=== PATIENT | male | born 1955 | race Caucasian/White ===

== ENCOUNTER 2024-01-16 15:44 | Outpatient (AMB) | payer OTHER, SELFPAY ==
--- NOTE | 2024-01-16 16:05 | A.OFFPC_ITS ---
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 Transferring care from [facility]. Medical records have not been requested and have received. Primary Mill Roller Required: No Food And Nutrition Services Supervisor: Not Required per policy Accompanied by: Self / Same As Patient Allergies No Known Allergies Allergy (Verified 01/16/24 16:31) Medication List - Last Reconciled 01/16/24 by Marino Hernandez MD No Known Home Meds Tobacco use date assessed: 01/16/24 Fall risk assessment: 1 Fall in past year (01/15/24) Last assessed Fall Risk: 01/16/24 Dental Screening Dental Screen Date: 01/16/24 Did you have a dental visit in the last 12 months?: No Did you have a dental problem in the last 6 months where you did not have access to dental care?: No Was dental information given to patient?: No HPI 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 HPI Details Patient comes in today for his annual physical examination and to establish care - he is a new patient to the practice His previous PCP was at [facility] and patient states that he has not seen a doctor in about 3 years States that he has a few issues that he would like to have addressed Relates that he has been experiencing recurrent right knee pain lately; knee also swells up at times recently Reports (+) Hx of ACL repair of his right knee back when he was in college Denies any recent injury or trauma to his knee but states that 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 of 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 and states that he will often constantly be walking and roaming around the pool when he is at work Thinks that he may have aggravated his knee in the process Also states that he has a history of diabetes and was on Metformin for his diabetes in the past but he quit taking them just before the pandemic about 3 years ago and has been just trying to control his blood sugar with diet and exercise although his recent knee issues have made exercising impractical Adds that he has been experiencing trouble hearing for a while now and feels that this has been getting worse and he would like like to have his hearing checked out He denies any headaches or dizziness Denies any chest pains, no SOB No nausea/vomiting, no abdominal pain but reports that he has been experiencing a constant sensation of fullness and sometimes pressure over the left upper abdominal area lately No change in bowel habits noted Denies any acute urinary symptoms PFSH Medical History (Updated 01/18/24 @ 22:06 by Marino Hernandez MD) Hearing impairment Overweight (BMI 25.0-29.9) Right knee pain Diabetes mellitus Surgical History (Updated 01/18/24 @ 22:10 by Marino Hernandez MD) History of colonoscopy History of repair of ACL Social History 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 1. Little interest or pleasure in doing things: not at all 2. Feeling down, depressed, or hopeless: not at all 3. Trouble falling or staying asleep, or sleeping too much: not at all 4. Feeling tired or having little energy: not at all 5. Poor appetite or overeating: not at all 6. Feeling bad about yourself - or that you are a failure or have let yourself or your family down: not at all 7. Trouble concentrating on things, such as reading the newspaper or watching television: not at all 8. Moving or speaking so slowly that other people could have noticed. Or the opposite - being so fidgety or restless that you have been moving around a lot more than usual: not at all 9. Thoughts that you would be better off or of hurting yourself in some way: not at all Total score: 0 Depression Screening Interpretation: Negative Depression Screening Done: Yes 92931 - PHQ-9 Billing: Yes Source: Developed by Drs. Charly Gutierrez, Ada Gustafson, Marino Sadler and colleagues, with an educational socorro from [employer]. Thrive Questionnaire Date Thrive assessed: 01/16/24 I am a: Patient What is your living situation today?: I have a steady place to live Within the past 12 months, did the food you bought not last and you didn't have the money to get more?: Never true Within the past 12 months, did you worry whether your food would run out before you got money to buy more?: Never true Do you have trouble paying for medicines?: No Do you have trouble getting transportation to medical appointments?: No Do you have trouble paying your heating and electricity bill?: No Do you have trouble taking care of your child, family member or friend?: No Do you have trouble with day-to-day activities such as bathing, preparing meals, shopping, managing finances, etc.?: No Are you currently unemployed and looking for a job?: No Are you interested in more education?: No Currently or been in a relationship where the following occur: no concerns reported THRIVE Score: 0 AUDIT C Alcohol Use Questionnaire (AUDIT-C) 1. How often do you have a drink containing alcohol?: 2-3 times a week 2. How many drinks containing alcohol do you have on a typical day when you are drinking?: 1 or 2 3. How often do you have six or more drinks on one occasion?: Never Total Score: 3 Score Reviewed/Action Taken: Yes JORI-7 AMB Questionnaire JORI-7 Date JORI - 7 assessed: 01/16/24 Feeling nervous, anxious, or on edge: 0 = Not at all Not being able to stop or control worryin = Not at all Worrying too much about different things: 0 = Not at all Trouble relaxin = Not at all Being so restless that it is hard to sit still: 0 = Not at all Becoming easily annoyed or irritable: 0 = Not at all Feeling afraid as if something awful might happen: 0 = Not at all Total JORI-7 score (0-4 normal; 5-9 mild; 10-14 moderate; 15-21 severe): 0 Source: Developed by Ada Murphy Kurt Kroenke and colleagues, with an educational socorro from [employer]. Review of Systems Const Denies chills, Denies fatigue, Denies fever(s) and Denies headache(s) Eyes Denies blurry vision, Denies change in vision, Denies irritation and Denies itchy eyes ENT Denies dysphagia, Denies dizziness, Denies otalgia, Denies headache(s), Reports hearing loss, Denies neck pain, Denies odynophagia and Denies sore throat Card Denies chest pain, Denies palpitations and Denies dyspnea Resp Denies cough, Denies dyspnea and Denies wheezing GI Reports abdominal pain (most left-sided - more of a fullness and pressure-like sensation on the L ), Denies constipation, Denies dysphagia, Denies heartburn, Denies diarrhea, Denies nausea, Denies odynophagia and Denies vomiting Denies oliguria, Denies difficulty urinating, Denies dysuria, Reports nocturia and Denies urinary frequency Musc Denies back pain, Reports arthralgias (of the right knee, on and off lately), Reports joint swelling (right knee, at times) and Denies neck pain Skin/Breast Denies lesions and Denies rash Neuro Denies dizziness and Denies headache(s) Psych Denies anxiety Endo Denies fatigue and Denies palpitations Aller/Immun Denies itchy eyes and Denies wheezing Physical exam (Primary Care) Vital Signs: Last Vital Signs Pulse 109 H 01/16/24 16:07 BP 140/80 H 01/16/24 16:07 Pulse Ox 98 01/16/24 16:07 Oxygen Delivery Method Room Air 01/16/24 16:07 BMI result Body Mass Index 29.8 Tobacco/Smoking Status: Tobacco use Status Tobacco use date assessed 01/16/24 01/16/24 16:21 Patient Tobacco Use Status Former Tobacco user 01/16/24 16:21 e-Cigarette/Vaping Use Never Used 01/16/24 16:21 PHQ-9: PHQ-9 Score PHQ-9: Total score 0 01/18/24 19:01 Depression Screening Interpretation: Negative Thrive Assessment: Date of Thrive Assessment Date Thrive assessed 01/16/24 01/16/24 16:21 Currently or been in a relationship where the following occur: no concerns reported Const General: no acute distress and alert Orientation/consciousness: patient oriented x3 [facility] Head: Yes normocephalic and Yes atraumatic Ears: TM's normal bilaterally and EAC's normal General nose exam: No nasal discharge present Face and sinus: Yes normal facial exam and Yes sinuses nontender Teeth and gingiva: dentition normal Throat: Yes posterior oropharynx normal and Yes tonsils normal (no TP congestion) Eyes Eyelids: Yes eyelids normal Conjunctivae: conjunctivae normal Pupils: Equal, round and reactive pupils present EOM: EOMs intact bilaterally Neck Neck: Yes no lymphadenopathy and Yes supple Thyroid: Thyroid normal Resp Auscultation: clear to auscultation bilaterally, no rales and no wheezes Cardio Rate: regular rate Rhythm: regular rhythm Heart sounds: no murmurs GI Palpation (GI): Soft to palpation, nontender, No hepatosplenomegaly present and no masses (no masses palpated over the left side of the abdomen) Auscultation: normal bowel sounds General: Yes no CVA tenderness Back/Spine/Pelvis Back: no CVA tenderness Thoracic/Lumbar Spine: thoracic and lumbar spine normal to inspection Skin Lesions: no lesions Rashes: no rashes Neuro General: patient oriented x3, moves all extremities, no focal motor deficits and CN's II-XI intact bilaterally Cranial nerves: Yes Equal, round and reactive pupils present Cognition (Neuro): normal cognition Gait exam (Neuro): Normal gait present Extrem General: Yes no clubbing, cyanosis or edema Right lower extremity: knee Details: tenderness Location: of the medial joint line; no swelling Results AMB Hemoglobin A1c AMB Hemoglobin A1c 12.6 % Last Edit by ALEKSANDER Hernandez on 01/16/24 16:4 5 Results Reviewed Results Reviewed: Laboratory Last Values Hgb A1c (Clinic) 12.6 % (4.0-6.0) H 01/16/24 16:36 Assessment and Plan Assessment & Plan (1) Annual physical exam: Code(s): Z00.00 - Encounter for general adult medical examination without abnormal findings Plan: Check labs TERELL Thinks that he is up-to-date with his colon cancer screening - recalls having it done at [facility] sometime within the past 5 to 7 years and was recommended to get his colonoscopy repeated in 10 years (2) Diabetes mellitus: Code(s): E11.9 - Type 2 diabetes mellitus without complications Qualifiers: Diabetes mellitus complication status: with hyperglycemia Diabetes mellitus terminal manager insulin use: without terminal manager use Diabetes mellitus type: type 2 Qualified Code(s): E11.65 - Type 2 diabetes mellitus with hyperglycemia Plan: In-office HgbA1c done today is at 12.6%, which as discussed with patient, indicates that his diabetes is completely uncontrolled and that at this point, diet modification and exercise alone are not really going to be enough to get him to goal, which is a HgbA1c of at least <7.0% Reinforced diabetic diet He is advised that I will start him again for now on Metformin 500 mg BID but he needs to get labs done TERELL for us to see at least how his renal function is at this time, which will impact whatever medications we have to start him on from now on for his diabetes He will likely need more that 500 mg of Metformin BID to get his diabetes under control but we will have to see how his labs come out first Patient states that he will try to get these done TERELL, most likely early Friday morning as this weekend will have the [place] Day parade here in [place] and it will be practically impossible to get here this weekend for his labs (3) Elevated blood pressure reading in office without diagnosis of hypertension: Code(s): R03.0 - Elevated blood-pressure reading, without diagnosis of hypertension Plan: He is advised that his blood pressure is elevated and higher than recommended at this time Discussed low sodium diet and goal is a systolic BP of at least 120 to 130 mm or less (4) Left sided abdominal pain: Code(s): R10.9 - Unspecified abdominal pain Plan: Will send him for abdominal US for further evaluation (5) Right knee pain: Code(s): M25.561 - Pain in right knee Qualifiers: Chronicity: unspecified Qualified Code(s): M25.561 - Pain in right knee Plan: Will send him for x-rays of the right knee for further evaluation (6) Hearing impairment: Code(s): H91.90 - Unspecified hearing loss, unspecified ear Qualifiers: Hearing loss type: unspecified Laterality: unspecified laterality Qualified Code(s): H91.90 - Unspecified hearing loss, unspecified ear Plan: Per request, will refer him to [facility] Hearing for further evaluation (7) Overweight (BMI 25.0-29.9): Code(s): E66.3 - Overweight Plan: Reinforced diet/exercise as tolerated/lose weight Plan Follow up in 2 months Orders: Orders AMB Hemoglobin A1c 01/16/24 Z13.9 - Encounter for screening, unspecified Complete Blood Count Auto Diff 01/16/24 D64.9 - Anemia, unspecified, Z00.00 - Encounter for general adult medical examination without abnormal findings Vitamin D 25-OH Total 01/16/24 E55.9 - Vitamin D deficiency, unspecified, Z00.00 - Encounter for general adult medical examination without abnormal findings US abdomen complete 01/16/24 R10.9 - Unspecified abdominal pain XR knee RT 3V 01/16/24 M25.561 - Pain in right knee Comprehensive [place]. Panel Fast 01/16/24 E78.00 - Pure hypercholesterolemia, unspecified, Z00.00 - Encounter for general adult medical examination without abnormal findings Lipid Panel 01/16/24 E78.00 - Pure hypercholesterolemia, unspecified, Z00.00 - Encounter for general adult medical examination without abnormal findings TSH reflex Free T4 01/16/24 E78.00 - Pure hypercholesterolemia, unspecified, Z00.00 - Encounter for general adult medical examination without abnormal findings UA CC w/rflx Micro + Cult 01/16/24 R30.0 - Dysuria, Z00.00 - Encounter for general adult medical examination without abnormal findings Microalbumin, Random (w Creat) 01/16/24 E11.9 - Type 2 diabetes mellitus without complications, Z00.00 - Encounter for general adult medical examination without abnormal findings Prostate Specific Antigen 01/16/24 N40.0 - Benign prostatic hyperplasia without lower urinary tract symptoms, Z00.00 - Encounter for general adult medical examination without abnormal findings Referrals Speech and Hearing Referral H91.90 - Unspecified hearing loss, unspecified ear Medications: New metformin 500 mg PO BID 30 days 60 tabs 0RF E11.9 - Type 2 diabetes mellitus without complications Coding Level of Care Code New Pt Prev Care >65yr (65572) Diagnoses Annual physical exam Z00.00 Type 2 diabetes mellitus with hyperglycemia, without long-term current use of insulin E11.65 Diabetes mellitus complication status: with hyperglycemia Diabetes mellitus [facility] insulin use: without [facility] use Diabetes mellitus type: type 2 Elevated blood pressure reading in office without diagnosis of hypertension R03.0 Left sided abdominal pain R10.9 Right knee pain, unspecified chronicity M25.561 Chronicity: unspecified Hearing loss, unspecified hearing loss type, unspecified laterality H91.90 Hearing loss type: unspecified Laterality: unspecified laterality Overweight (BMI 25.0-29.9) E66.3
[2024-01-16 16:07] VITALS: BP 140/80; PULSE 109; O2SAT 98; BMI 29.8
== END 2024-01-16 16:52 | disposition home or self-care (01) ==
PROVIDERS: PCP Internal Medicine; Visit Provider Internal Medicine
DX: E11.65 Type 2 diabetes mellitus with hyperglycemia (principal)
CPT/HCPCS: 83036; 99387

== ENCOUNTER 2024-01-19 09:25 | Outpatient (REF) | payer OTHER, SELFPAY ==
[2024-01-19 09:45] LABS: MANUAL DIFF FLAG NO
[2024-01-19 10:32] LABS: Basophils Absolute Auto 0.1 X10*3/uL (0.0-0.2); Basophils Percent Auto 0.7 % (0-2); Eosinophils Absolute Auto 0.2 X10*3/uL (0.0-0.4); Eosinophils Percent Auto 2.5 % (0-4); Hematocrit 42.1 % (42.0-52.0); Hemoglobin 14.8 g/dl (14.0-18.0); Imm Gran Abs Auto 0.05 X10*3/uL (0.00-0.03); Imm Gran Pct Auto 0.7 % (0.0-0.4); Lymphocytes Absolute Auto 1.9 X10*3/uL (1.2-4.9); Mean Corpuscular HGB Conc 35.2 g/dl (31.0-36.0); Mean Corpuscular Hemoglobin 32.5 pg (27.0-33.0); Mean Corpuscular Volume 92.5 fL (80.0-98.0); Mean Platelet Volume 11.8 fL (9.4-12.4); Monocytes Absolute Auto 0.8 X10*3/uL (0.1-1.2); Monocytes Percent Auto 11.7 % (2-11); Neutrophils Absolute Auto 3.8 x10*3/uL (2.0-8.3); Neutrophils Percent Auto 56.4 % (45-73); Platelet Count 191 X10*3/uL (160-400); Red Blood Count 4.55 X10*6/uL (4.60-5.80); Red Cell Distribution Width 12.2 % (11.0-16.0); White Blood Count 6.7 X10*3/uL (4.8-10.8)
[2024-01-19 10:43] LABS: Appearance Urine Clear; Color Urine Yellow; Glucose Urine UA >=1000 mg/dL (Negative); Leukocyte Esterase Urine Negative (Negative); Nitrite Urine Negative (Negative); UMIC TRIGGER UACC YES; Urine Blood Negative (Negative); Urine Ketones Negative (Negative); Urine Protein 30 (1+) mg/dL (Neg-Trace)
[2024-01-19 10:49] LABS: Bacteria Urine None Seen (None Seen); Hyaline Casts Urine 0-2 /LPF (0-2); RBC Urine 0-2 /HPF (0-2); Squamous Epithelial Cell Urine 0-2 /HPF (0-2); WBC Urine 0-5 /HPF (0-5)
[2024-01-19 11:19] LABS: Alanine Aminotransferase 27 U/L (0-40); Albumin Level 3.9 g/dL (3.5-5.0); Alkaline Phosphatase 77 U/L (39-117); Anion Gap 16 (12-20); Aspartate Amino Transferase 18 U/L (5-37); Bilirubin Total 0.6 mg/dL (0.0-1.0); Blood Urea Nitrogen 11 mg/dL (9-16); Calcium 9.7 mg/dL (8.4-10.2); Carbon Dioxide 23 mmol/L (22-29); Chloride 97 mmol/L (96-108); Cholesterol 299 mg/dL (<200); Estimated Glomerular Filt Rate > 60; Glucose Fasting 289 mg/dL (60-99); HDL Cholesterol 51 mg/dL (>40); Sodium 131 mmol/L (135-145); Total Protein 7.8 g/dL (6.5-8.0); Triglycerides 523 mg/dL (<150)
[2024-01-19 11:29] LABS: Creatinine Urine 61.06 mg/dL; Microalbum/Creatinine Ratio Ur 268.5 ug/mg cr (<30)
[2024-01-19 11:41] LABS: Prostate Specific Antigen 0.16 ng/mL (<0.05-4.0)
[2024-01-19 11:43] LABS: TSH reflex Free T4 1.17 uIU/mL (0.32-4.0); Vitamin D 25-OH Total 19.8 ng/mL (>30)
== END 2024-01-19 09:26 | disposition home or self-care (01) ==
LOC: HO.LAB 09:25
PROVIDERS: PCP Internal Medicine; Visit Provider Internal Medicine
DX: Z00.00 Encounter for general adult medical examination without abnormal findings (principal); Z12.5 Encounter for screening for malignant neoplasm of prostate; E55.9 Vitamin D deficiency, unspecified; E78.00 Pure hypercholesterolemia, unspecified; E11.9 Type 2 diabetes mellitus without complications; D64.9 Anemia, unspecified; N40.0 Benign prostatic hyperplasia without lower urinary tract symptoms
CPT/HCPCS: 36415; 80053; 80061; 81001; 82043; 82306; 82570; 84153; 84443; 85025

== ENCOUNTER 2024-02-03 07:37 | Outpatient (REF) | payer OTHER, SELFPAY ==
--- NOTE | ~2024-02-03 | US_ITS ---
EXAMINATION: US ABDOMEN COMPLETE CLINICAL INFORMATION: Unspecified abdominal pain. COMPARISON: None available. TECHNIQUE: Real-time imaging of the abdominal viscera. FINDINGS: PANCREAS: Limited. The visualized pancreatic head and body are normal in appearance. The remainder of the pancreas is obscured from visualization by the overlying bowel gas. ABDOMINAL AORTA: The proximal and distal segments are nonaneurysmal. The segment is obscured by overlying bowel gas. INFERIOR VENA CAVA: Visualized portions are normal. LIVER: The liver is normal in size, with a longitudinal span of 16.0 cm. The liver contour is normal. There is diffuse increased liver parenchymal echogenicity. No focal hepatic lesion. There is no intrahepatic biliary duct dilatation seen. GALLBLADDER: Normal. The gallbladder is physiologically distended without evidence of stones, sludge, polyps, wall thickening or pericholecystic fluid. COMMON BILE DUCT: Normal in caliber measuring 0.5 cm in diameter. RIGHT KIDNEY: Normal. No hydronephrosis. No renal calculi or focal parenchymal lesions. The kidney measures 11.7 cm in maximum dimension. LEFT KIDNEY: Normal. No hydronephrosis. No renal calculi or focal parenchymal lesions. The kidney measures 11.3 cm in maximum dimension. SPLEEN: Normal. The spleen measures 9.4 cm in maximum dimension. FREE FLUID: None. US/US abdomen complete IMPRESSION: 1. There is generalized increase in hepatic echotexture, consistent with fatty infiltration or hepatocellular disease. Please correlate clinically. No focal hepatic mass or intrahepatic biliary dilatation is seen. 2. Technically limited ultrasound examination of the pancreas and abdominal great vessels.
== END 2024-02-03 07:38 | disposition home or self-care (01) ==
LOC: HO.US 07:37
PROVIDERS: PCP Internal Medicine; Visit Provider Internal Medicine
DX: R10.9 Unspecified abdominal pain (principal)
CPT/HCPCS: 76700

== ENCOUNTER 2024-04-06 08:11 | Outpatient (AMB) | payer OTHER, SELFPAY ==
[2024-04-06 08:38] VITALS: BP 144/88; PULSE 86; O2SAT 97; BMI 30.6
--- NOTE | 2024-04-06 08:38 | MHC.PC.OV ---
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 Required: No Ring Packer: Not Required per policy Accompanied by: Self / Same As Patient Allergies No Known Allergies Allergy (Verified 04/06/24 11:41) Medication List - Last Reconciled 04/06/24 by Marino Hernandez MD linagliptin (Tradjenta) 5 mg PO QAM 90 days lisinopril 5 mg PO DAILY 90 days metformin 500 mg PO BID 30 days Tobacco use date assessed: 01/16/24 Fall risk assessment: No Falls in past year Last assessed Fall Risk: 04/06/24 Dental Screening Dental Screen Date: 01/16/24 HPI uncontrolled DM HPI Details Patient comes in today for his follow up visit States that he has been experiencing increasing right knee pain lately - feels that his knee is giving out on him often when he is walking or moving about Recalls that he had arthroscopic surgery on his knee many years ago for a torn ACL States that he feels okay otherwise He denies any headaches or dizziness Denies any chest pains, no SOB No nausea/vomiting, no abdominal pain No change in bowel habits noted He would like to go over the results of his labs done back in January 2024 after his initial physical exam here [facility] Medical History Obesity (BMI 30-39.9) Vitamin D deficiency Essential hypertension Mixed hyperlipidemia Hearing impairment Overweight (BMI 25.0-29.9) Right knee pain Diabetes mellitus Surgical History History of colonoscopy History of repair of ACL Social History Housing: Condominium Alcohol intake: current Alcohol intake frequency: 0-2 drinks per day Patient Tobacco Use Status: Former Tobacco user e-Cigarette/Vaping Use: Never Used Second Hand Smoke Exposure: Yes service: Yes ([employer]) Current occupational status: employed 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 Charly Gutierrez, Aad Gustafson, Marino Sadler and colleagues, with an educational socorro from [employer]. Review of Systems Const Denies chills, Denies fatigue, Denies fever(s) and Denies headache(s) ENT Denies dysphagia, Denies dizziness, Denies otalgia, Denies headache(s), Denies neck pain, Denies odynophagia and Denies sore throat Card Denies chest pain, Denies palpitations and Denies dyspnea Resp Denies cough and Denies dyspnea GI Denies abdominal pain, Denies constipation, Denies dysphagia, Denies heartburn, Denies diarrhea, Denies nausea, Denies odynophagia and Denies vomiting Denies dysuria, Denies nocturia and Denies urinary frequency Musc Denies back pain and Denies neck pain Skin/Breast Denies rash Neuro Denies dizziness and Denies headache(s) Endo Denies fatigue and Denies palpitations Physical exam (Primary Care) Vital Signs: Last Vital Signs Pulse 86 04/06/24 08:38 BP 144/88 H 04/06/24 08:38 Pulse Ox 97 04/06/24 08:38 Oxygen Delivery Method Room Air 04/06/24 08:38 BMI result Body Mass Index 30.6 Tobacco/Smoking Status: Tobacco use Status Tobacco use date assessed 01/16/24 04/06/24 08:39 Patient Tobacco Use Status Former Tobacco user 04/06/24 08:39 e-Cigarette/Vaping Use Never Used 04/06/24 08:39 Thrive Assessment: Date of Thrive Assessment Date Thrive assessed 01/16/24 04/06/24 08:39 Const General: no acute distress and alert HENMT Ears: TM's normal bilaterally and EAC's normal Throat: Yes posterior oropharynx normal and Yes tonsils normal (no TP congestion) Neck Neck: Yes no lymphadenopathy and Yes supple Thyroid: Thyroid normal Resp Auscultation: clear to auscultation bilaterally, no rales and no wheezes Cardio Rate: regular rate Rhythm: regular rhythm Heart sounds: no murmurs GI Palpation (GI): Soft to palpation and nontender Auscultation: normal bowel sounds General: Yes no CVA tenderness Back/Spine/Pelvis Back: no CVA tenderness Thoracic/Lumbar Spine: No lumbar spinal tenderness Skin Rashes: no rashes Extrem General: Yes no clubbing, cyanosis or edema Results AMB Hemoglobin A1c AMB Hemoglobin A1c 10.6 % Last Edit by ALEKSANDER Khanna on 04/06/24 08:55 Results Reviewed Results Reviewed: Laboratory Last Values Hgb A1c (Clinic) 10.6 % (4.0-6.0) H 04/06/24 08:39 Laboratory Tests 01/19/24 01/19/24 04/06/24 09:44 09:46 08:39 WBC 6.7 Hgb 14.8 Hct 42.1 Plt Count 191 Sodium 131 L Potassium 5.0 Creatinine 1.14 Estimated GFR > 60 Fasting Glucose 289 H Hgb A1c (Clinic) 10.6 H Calcium 9.7 AST 18 ALT 27 Triglycerides 523 H Cholesterol 299 H LDL Cholesterol, Calc TNP HDL Cholesterol 51 Prostate Specific Ag 0.16 25-OH Vitamin D Total 19.8 L TSH 1.17 Ur Specific [place] 1.020 Urine Protein 30 (1+) H Urine Glucose (UA) >=1000 H Urine Blood Negative Urine Nitrite Negative Ur Leukocyte Esterase Negative Microalb/Creat Ratio 268.5 H Assessment and Plan Assessment & Plan (1) Type 2 diabetes mellitus with microalbuminuria, without long-term current use of insulin: Code(s): E11.29 - Type 2 diabetes mellitus with other diabetic kidney complication; R80.9 - Proteinuria, unspecified Plan: His in-office HgbA1c today is at 10.6% (he was at 12.6% a few months ago) - goal is at least <7.0% Reinforced diabetic diet Continue Metformin 500 mg BID; will start him additionally on Tradjenta 5 mg QD He is also advised that he currently already has significant microalbuminuria on his recent labs so he should try to get his diabetes under control more urgently (2) Mixed hyperlipidemia: Code(s): E78.2 - Mixed hyperlipidemia Plan: Results of his labs done back in January 2024 reviewed and discussed with patient - he is advised that his serum triglyceride level was significantly elevated at 523 mg/dl and total cholesterol at 299 mg/dl Discussed that his very high TG level is likely related to his hyperglycemia and poor DM control and should improve once his diabetes is under better control Reinforced low cholesterol diet Will recheck his labs and fasting lipids in 4 months for follow up (3) Essential hypertension: Code(s): I10 - Essential (primary) hypertension Plan: Discussed low sodium diet - goal is systolic BP of 120 mm or less Will go ahead and start him on Lisinopril 5 mg QD - advised that Lisinopril also helps to some extent with renoprotection He is advised to check and monitor his blood pressure regularly (4) Right knee pain: Code(s): M25.561 - Pain in right knee Qualifiers: Chronicity: unspecified Qualified Code(s): M25.561 - Pain in right knee Plan: Will send him for x-rays of the right knee for further evaluation Will also refer him to orthopedics for further evaluation and management (5) Vitamin D deficiency: Code(s): E55.9 - Vitamin D deficiency, unspecified Plan: Will start him on Vitamin D3 2000 units QD (6) Obesity (BMI 30-39.9): Code(s): E66.9 - Obesity, unspecified Plan: Reinforced diet/exercise as tolerated/lose weight Plan Follow up in 4 months Orders: Orders AMB Hemoglobin A1c Today E11.65 - Type 2 diabetes mellitus with hyperglycemia Lipid Panel 4 Months E78.00 - Pure hypercholesterolemia, unspecified Complete Blood Count Auto Diff 4 Months D64.9 - Anemia, unspecified TSH reflex Free T4 4 Months E78.00 - Pure hypercholesterolemia, unspecified UA CC w/rflx Micro + Cult 4 Months R30.0 - Dysuria XR knee RT 4V Today M25.561 - Pain in right knee Hemoglobin A1c 4 Months E11.9 - Type 2 diabetes mellitus without complications Comprehensive [place]. Panel Fast 4 Months E78.00 - Pure hypercholesterolemia, unspecified Microalbumin, Random (w Creat) 4 Months E11.9 - Type 2 diabetes mellitus without complications Vitamin D 25-OH Total 4 Months E55.9 - Vitamin D deficiency, unspecified Referrals Orthopedics Referral M25.561 - Pain in right knee Medications: New lisinopril 5 mg PO DAILY 90 days 90 tabs 1RF linagliptin (Tradjenta) 5 mg PO QAM 90 days 90 tabs 1RF Coding Level of Care Code Est Pt Level 4 (25590) Complex EM visit Add On G2211 Diagnoses Type 2 diabetes mellitus with microalbuminuria, without long-term current use of insulin E11.29; R80.9 Mixed hyperlipidemia E78.2 Essential hypertension I10 Right knee pain, unspecified chronicity M25.561 Chronicity: unspecified Vitamin D deficiency E55.9 Obesity (BMI 30-39.9) E66.9
== END 2024-04-06 09:42 | disposition home or self-care (01) ==
PROVIDERS: PCP Internal Medicine; Visit Provider Internal Medicine
DX: E11.29 Type 2 diabetes mellitus with other diabetic kidney complication (principal); E11.65 Type 2 diabetes mellitus with hyperglycemia; Z68.43 Body mass index [BMI] 50.0-59.9, adult; E66.9 Obesity, unspecified; R80.9 Proteinuria, unspecified; E78.2 Mixed hyperlipidemia; M25.561 Pain in right knee; I10 Essential (primary) hypertension; E55.9 Vitamin D deficiency, unspecified
CPT/HCPCS: 83036; 99214; G2211

== ENCOUNTER 2024-04-12 13:04 | Outpatient (AMB) | payer OTHER, SELFPAY ==
--- NOTE | 2024-04-12 13:15 | A.OFFVIS_ITS ---
Intake Visit Reasons: N/P RT knee pain Intake Note: Harsha is a 68 year old male who presents today as a new patient for a evaluation of his right knee pain. Patient reports feeling that his knee is giving out on him often when he is walking or moving and it is painful especially when walking up stairs. He express that he had arthroscopic surgery in 1975 on his knee many years ago for a torn ACL. Pt denies any previous injections. Allergies No Known Allergies Allergy (Verified 04/12/24 13:19) HPI HPI N/P RT knee pain : Details: 68-year-old male who presents in the office today, as a new patient, for an evaluation of right knee pain. The patient was seen twice on 01/16/2024 and 04/06/2024 by his PCP with a complaint of right knee pain, edema, and giving out. X-rays of the right knee were ordered but not obtained. While in the office today the patient reports feeling like his knee is going to give out, which occurs often when ambulating and with movements. He reports increased pain when ambulating up stairs. He states his biggest complaint is instability. The patient reports the pain began about a year ago, in 2022, intermittently and has progressed over time. He states his pain began at a 2/10 but has increased to 6/10. He denies any fall or trauma to the right knee. 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 Patient denies any prior injections and would like to discuss options. Patient reports he has been working out more. Patient has a significant medical history of diabetes mellitus that is uncontrolled. A1c as of 01/16/2024 was 12.6%. A1c as of 04/06/2024 was 10.6%. Per Internal Medicine note on 01/16/2024, the patient has a surgical history of right knee ACL repair when he was in college. During today?s encounter the patient reports this surgery was in 1975. He states the surgery took a few months to recover. 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 No ecchymosis, erythema, or joint effusion. No tenderness to palpation along the medial or lateral joint lines. Full knee extension and flexion. Crepitus felt with ROM. NVI. Assessment & Plan Assessment & Plan (1) Osteoarthritis of right knee: Code(s): M17.11 - Unilateral primary osteoarthritis, right knee Category: Medical (2) Diabetes mellitus: Code(s): E11.9 - Type 2 diabetes mellitus without complications Category: Medical Qualifiers: Diabetes mellitus complication detail: with diabetic microalbuminuria Diabetes mellitus complication status: with kidney complications Diabetes mellitus terminal operator insulin use: without half-way use Diabetes mellitus type: type 2 Qualified Code(s): E11.29 - Type 2 diabetes mellitus with other diabetic kidney complication; R80.9 - Proteinuria, unspecified Plan Mr. Jeter is a 68-year-old male who presents in the office today, as a new patient, for an evaluation of right knee pain. The patient was seen twice on 01/16/2024 and 04/06/2024 by his PCP with a complaint of right knee pain, edema, and giving out. X-rays of the right knee were ordered but not obtained. While in the office today the patient reports feeling like his knee is going to give out, which occurs often when ambulating and with movements. He reports increased pain when ambulating up stairs. He states his biggest complaint is instability. The patient reports the pain began about a year ago, in 2022, intermittently and has progressed over time. He states his pain began at a 2/10 but has increased to 6/10. He denies any fall or trauma to the right knee. 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 Patient denies any prior injections and would like to discuss options. Patient reports he has been working out more. Patient has a significant medical history of diabetes mellitus that is uncontrolled. A1c as of 01/16/2024 was 12.6%. A1c as of 04/06/2024 was 10.6%. Per Internal Medicine note on 01/16/2024, the patient has a surgical history of right knee ACL repair when he was in college. During today?s encounter the patient reports this surgery was in 1975. He states the surgery took a few months to recover. 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 I discussed the role of cortisone and gel injections. However, due to the patient?s A1c being 10.6, we will defer until he reaches a goal of 8 to 9. The patient understands and accepts this plan. He was given a genumed knee brace, off the shelf. A referral for physical therapy was made in the office today to work on quad muscle strengthening. He is also able to take OTC ibuprofen for pain and inflammation. Follow-up will be in 3 months, or sooner if needed. X-rays of the right knee which were obtained while in the office today and were reviewed by me, Loretta Mckeon PA-C, revealed right knee osteoarthritis. Orders: Orders XR knee RT 3V Today M25.569 - Pain in unspecified knee Patient Instructions: Scribed by Patricia Lopez ophthalmic medical technologist, for Loretta Mckeon PA-C on 04/12/2024 at 1:05 pm, EST. Coding Level of Care Code New Pt Level 4 (19644) Diagnoses Osteoarthritis of right knee M17.11 Type 2 diabetes mellitus with diabetic microalbuminuria, without long-term current use of insulin E11.29; R80.9 Diabetes mellitus complication detail: with diabetic microalbuminuria Diabetes mellitus complication status: with kidney complications Diabetes mellitus terminal operator insulin use: without half-way use Diabetes mellitus type: type 2
== END 2024-04-12 13:56 | disposition home or self-care (01) ==
PROVIDERS: PCP Internal Medicine; Visit Provider Physician Assistant
DX: M17.11 Unilateral primary osteoarthritis, right knee (principal); E11.29 Type 2 diabetes mellitus with other diabetic kidney complication; R80.9 Proteinuria, unspecified
CPT/HCPCS: 99204

== ENCOUNTER 2024-04-12 15:28 | Outpatient (REF) | payer OTHER, SELFPAY ==
--- NOTE | ~2024-04-12 | XR_ITS ---
EXAMINATION: XR KNEE, RIGHT CLINICAL INFORMATION: Pain in unspecified knee. COMPARISON: None available. TECHNIQUE: AP standing view of bilateral knees. 2 views of the right knee. FINDINGS: The bones are diffusely demineralized. AP standing view of the left knee demonstrates minimal narrowing of the medial compartment. Small calcifications versus ossific densities overlie the proximal left tibial shaft. Right knee: Advanced degenerative changes in the lateral compartment with loss of joint space height and lateral marginal osteophytes. Tiny posterior patellar osteophytes. Moderate joint effusion. Tiny rounded calcification overlies the right patellofemoral space on the sunrise view. XR/XR knee RT 3V IMPRESSION: Advanced degenerative changes in the lateral compartment of the right knee. Moderate right joint effusion.
== END 2024-04-12 15:29 | disposition home or self-care (01) ==
LOC: HO.HOSX 15:28
PROVIDERS: Visit Provider Physician Assistant
DX: M25.561 Pain in right knee (principal)
CPT/HCPCS: 73562

== ENCOUNTER 2024-05-28 11:37 | Outpatient (AMB) | payer OTHER, SELFPAY ==
[2024-05-28 11:39] VITALS: BP 116/78; PULSE 10; O2SAT 99; BMI 30.6
--- NOTE | 2024-05-28 11:39 | MHC.PC.OV ---
Vital Signs 05/28/24 11:39 Height 5 ft 8 in Weight 201 lb BMI 30.6 BP 116/78 Blood Pressure Location Lt brachial Position Sitting Pulse 10 L Pulse Source Pulse Oximeter Pulse Oximetry (%) 99 Oxygen Delivery Method Room Air Intake Visit Reasons: [facility] 06/07 & 06/30 Intake Note: Patient is here for a Pre-op for Cataracts surgery scheduled with provider name on 06/07 and 06/30. Seo Professional Required: No Accompanied by: Self / Same As Patient Allergies No Known Allergies Allergy (Verified 05/28/24 11:56) Medication List - Last Reconciled 05/28/24 by Marino Hernandez MD linagliptin (Tradjenta) 5 mg PO QAM 90 days lisinopril 5 mg PO DAILY 90 days metformin 500 mg PO BID 30 days Tobacco use date assessed: 01/16/24 Fall risk assessment: No Falls in past year Last assessed Fall Risk: 05/28/24 Dental Screening Dental Screen Date: 01/16/24 HPI [facility] 06/07 & 06/30 HPI Details Patient comes in today at the request of Dr. Oralia Pedraza of [facility] for a preoperative medical examination for clearance for surgery He is currently scheduled for cataract extraction/phacoemulsification with IOL of the left eye under MAC on 06/07/2024, followed by the same procedure on the other eye a few weeks later on 06/30/2024 Patient states that he currently feels okay He denies any headaches or dizziness Denies any chest pains, no SOB No nausea/vomiting, no abdominal pain No change in bowel habits noted Needs his Metformin Rx refilled today His HgbA1c at his 1st visit in January 2024 = 12.6%; was at 10.6% in early April 2024 and 9.9% today [facility] Medical History Obesity (BMI 30-39.9) Vitamin D deficiency Essential hypertension Mixed hyperlipidemia Hearing impairment Overweight (BMI 25.0-29.9) Right knee pain Diabetes mellitus Surgical History History of colonoscopy History of repair of ACL Social History Housing: Condominium Alcohol intake: current Alcohol intake frequency: 0-2 drinks per day Patient Tobacco Use Status: Former Tobacco user e-Cigarette/Vaping Use: Never Used Second Hand Smoke Exposure: Yes service: Yes ([employer]) Current occupational status: employed 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 Charly Gutierrez, Ada Gustafson, Marino Sadler and colleagues, with an educational socorro from [employer]. Review of Systems Const Denies chills, Denies fatigue, Denies fever(s) and Denies headache(s) Eyes Reports blurry vision ENT Denies dysphagia, Denies dizziness, Denies otalgia, Denies headache(s), Denies neck pain, Denies odynophagia and Denies sore throat Card Denies chest pain, Denies palpitations and Denies dyspnea Resp Denies cough and Denies dyspnea GI Denies abdominal pain, Denies constipation, Denies dysphagia, Denies heartburn, Denies diarrhea, Denies nausea, Denies odynophagia and Denies vomiting Denies dysuria, Denies nocturia and Denies urinary frequency Musc Denies back pain and Denies neck pain Skin/Breast Denies rash Neuro Denies dizziness and Denies headache(s) Endo Denies fatigue and Denies palpitations Physical exam (Primary Care) Vital Signs: Last Vital Signs Pulse 10 L 05/28/24 11:39 BP 116/78 05/28/24 11:39 Pulse Ox 99 05/28/24 11:39 Oxygen Delivery Method Room Air 05/28/24 11:39 BMI result Body Mass Index 30.6 Tobacco/Smoking Status: Tobacco use Status Tobacco use date assessed 01/16/24 05/28/24 11:40 Patient Tobacco Use Status Former Tobacco user 05/28/24 11:40 e-Cigarette/Vaping Use Never Used 05/28/24 11:40 Thrive Assessment: Date of Thrive Assessment Date Thrive assessed 01/16/24 05/28/24 11:40 Const General: no acute distress and alert HENMT Ears: TM's normal bilaterally and EAC's normal Throat: Yes posterior oropharynx normal and Yes tonsils normal (no TP congestion) Neck Neck: Yes no lymphadenopathy and Yes supple Thyroid: Thyroid normal Resp Auscultation: clear to auscultation bilaterally, no rales and no wheezes Cardio Rate: regular rate Rhythm: regular rhythm Heart sounds: no murmurs GI Palpation (GI): Soft to palpation and nontender Auscultation: normal bowel sounds General: Yes no CVA tenderness Back/Spine/Pelvis Back: no CVA tenderness Thoracic/Lumbar Spine: No lumbar spinal tenderness Skin Rashes: no rashes Extrem General: Yes no clubbing, cyanosis or edema Assessment and Plan Assessment & Plan (1) Preoperative examination: Code(s): Z01.818 - Encounter for other preprocedural examination Plan: Patient is currently stable although he is not really medically optimized for planned low cardiac-risk procedure Discussed with patient that the main concern at this point would still be his inadequately controlled diabetes as his HgbA1c is still at 9.9% when checked in the office today He was just started on Tx for his diabetes in January 2024 when he first came in to our practice so his diabetes is still a work in progress Have advised him that high blood sugar levels can lead to multiple complications, negatively impacting the success of the surgery Elevated blood sugar levels can also affect wound healing and increase the risk of infections after surgery Have advised patient that I will leave the final decision up to the incident response analyst who is going to perform the procedure(s) as to whether she is comfortable proceeding with the surgery or not but there is a good chance that his surgery will be postponed until his diabetes is under better control (2) Cataracts, bilateral: Code(s): H26.9 - Unspecified cataract Qualifiers: Cataract type: age-related Age-related cataract type: unspecified Qualified Code(s): H25.9 - Unspecified age-related cataract Plan: He is currently scheduled for cataract extraction/phacoemulsification with IOL of the left eye under MAC on 06/07/2024, followed by the same procedure on the other eye a few weeks later on 06/30/[address] Oralia Pedraza (3) Type 2 diabetes mellitus with microalbuminuria, without long-term current use of insulin: Code(s): E11.29 - Type 2 diabetes mellitus with other diabetic kidney complication; R80.9 - Proteinuria, unspecified Plan: His in-office HgbA1c today is at 9.9% (was at 10.6% just under 2 months ago and at 12.6% earlier this year) - goal is at least <7.0% Reinforced diabetic diet Continue Metformin 500 mg BID and Tradjenta 5 mg QD (was started on this in early April 2024) so his diabetes control is still a work in progress He was also advised that he already has significant microalbuminuria on his recent labs so he should work on getting his diabetes under control urgently (4) Mixed hyperlipidemia: Code(s): E78.2 - Mixed hyperlipidemia Plan: Reinforced low cholesterol diet Will recheck his labs and fasting lipids as scheduled in a couple of months for follow up and will then decide whether he needs to be started on additional Rx to help lower his cholesterol levels or not (5) Essential hypertension: Code(s): I10 - Essential (primary) hypertension Plan: Reinforced low sodium diet - goal is systolic BP of 120 mm or less He was started on Lisinopril 5 mg QD a couple of months ago - was advised that Lisinopril will also help to some extent with renoprotection He is reminded to continue monitoring his blood pressure regularly (6) Vitamin D deficiency: Code(s): E55.9 - Vitamin D deficiency, unspecified Plan: Continue Vitamin D3 2000 units QD (7) Obesity (BMI 30-39.9): Code(s): E66.9 - Obesity, unspecified Plan: Reinforced diet/exercise as tolerated/lose weight Plan Patient is currently stable for eye surgery BUT his diabetes is still not adequately controlled His HgbA1c in the office today is still at 9.9% (was at 10.6% just less than 2 months ago) but he was also just started on Tx for his diabetes when he first came to see us in January 2024 Have advised patient that I will leave the final decision up to the incident response analyst who is going to perform the procedure(s) as to whether she is comfortable proceeding with the surgery or not but high blood sugar levels can lead to multiple complications, negatively impacting the success of the surgery and can also affect wound healing and increase the risk of infections after surgery so there is a good chance that his surgery will have to be postponed until his diabetes is under better control Follow up as scheduled in August 2024 Orders: Orders AMB Hemoglobin A1c Today E11.29 - Type 2 diabetes mellitus with other diabetic kidney complication, R80.9 - Proteinuria, unspecified Medications: Refilled metformin 500 mg PO BID 30 days 60 tabs 0RF E11.9 - Type 2 diabetes mellitus without complications Coding Level of Care Code Est Pt Level 4 (44351) Diagnoses Preoperative examination Z01.818 Age-related cataract of both eyes, unspecified age-related cataract type H25.9 Cataract type: age-related Age-related cataract type: unspecified Type 2 diabetes mellitus with microalbuminuria, without long-term current use of insulin E11.29; R80.9 Mixed hyperlipidemia E78.2 Essential hypertension I10 Vitamin D deficiency E55.9 Obesity (BMI 30-39.9) E66.9
== END 2024-05-28 12:14 | disposition home or self-care (01) ==
PROVIDERS: PCP Internal Medicine; Visit Provider Internal Medicine
DX: Z01.818 Encounter for other preprocedural examination (principal); H25.9 Unspecified age-related cataract; E11.29 Type 2 diabetes mellitus with other diabetic kidney complication; R80.9 Proteinuria, unspecified; E78.2 Mixed hyperlipidemia; I10 Essential (primary) hypertension; E55.9 Vitamin D deficiency, unspecified
CPT/HCPCS: 99214

== ENCOUNTER 2024-07-06 10:38 | Outpatient (AMB) | payer OTHER, SELFPAY ==
--- NOTE | 2024-07-06 10:43 | MHC.OFFVIS ---
Vital Signs 07/06/24 10:49 Height 5 ft 8 in Weight 201 lb 8.04 oz BMI 30.6 BP 116/84 Blood Pressure Location Rt brachial Position Sitting Pulse 109 H Pulse Source Pulse Oximeter Intake Visit Reasons: DM/CONFIRMED Intake Note: New patient present today for Diabetes Mellitus Management. Last Diabetic Eye exam: couple months ago Last Podiatry Visit: Does not see a [employer] Sales Consultant Random Glucose: 228 mg/dl HgA1C: 8.7% Management Consultant Required: No Accompanied by: Self / Same As Patient Allergies No Known Allergies Allergy (Verified 07/06/24 10:50) HPI Comments Details: This is a 69-year-old male with a past medical history of type 2 diabetes, hypertension, obesity and hyperlipidemia presenting for initial diabetic consult for diabetic management. He was diagnosed with diabetes around the time of the pandemic. Hemoglobin a1c 8.7% today. POC 228. Last meal was a bag of fritos. Current medication regimen: Metformin 500 mg twice daily, Tradjenta 5 mg daily. Compliance issues: No medication compliance issues. Diet: Breakfast-none Lunch-grinder watch parts or something else that is take out, eating less pasta Dinner-varies, chips or left overs, mixed fruit Snacks/desserts: avoids cakes and cookies but will occasionally indulge. He has cut back. Cutting back on beer, 6 beers a day previously Nonsmoker. 3-4 days per week he swims at the [employer]. Hypoglycemia symptoms: None Hyperglycemia symptoms: None Eye exam: up to date Microvascular complications: neuropathy, nephropathy (microalbumin) Macrovascular complications: None Hypertension: treated with lisinopril 5 mg. Hyperlipidemia: No medications. Patient reports he was not fasting with his last labs. He has orders in to repeat them from his PCP. ROS: Constitutional: No unexplained weight loss, fever, chills, fatigue or night sweats. Eyes: No vision changes, blurry vision, double vision Respiratory: No shortness of breath Cardiovascular: No chest pain Skin: No open wounds Endocrine: No cold or heat intolerance. No polyuria or polydipsia. Physical exam: Constitutional: Alert, in no distress. Head: Normocephalic. Eyes: Pupils are equal, round and reactive to light. Extraocular muscles intact. Neck: Supple, Full range of motion. No lymphadenopathy. No palpable thyroid masses. Respiratory: Clear to auscultation. Cardiovascular: S1 S2 regular. No murmurs. Right foot: Warm and well perfused. No clubbing, cyanosis or edema. DP pulse 2+. Decreased vibratory sensation. Intact sensation to monofilament. No open wounds. Left foot: Warm and well perfused. No clubbing, cyanosis or edema. DP pulse 2+. Decreased vibratory sensation. Intact sensation to monofilament. No open wounds. 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 Cognitive needs: No Hearing needs: No Vision needs: Yes (glasses) Physical Exam Vital Signs: Last Vital Signs Pulse 109 H 07/06/24 10:49 BP 116/84 07/06/24 10:49 BMI result Body Mass Index 30.6 Results AMB Hemoglobin A1c AMB Hemoglobin A1c 8.7 % Last Edit by ALEKSANDER Morse on 07/06/24 11:08 Results Reviewed Results Reviewed: Laboratory Last Values Glucose (Clinic) 228 mg/dL (60-115) H 07/06/24 10:56 Hgb A1c (Clinic) 8.7 % (4.0-6.0) H 07/06/24 11:01 Laboratory Tests 01/16/24 01/19/24 01/19/24 16:36 09:44 09:46 Creatinine 1.14 Estimated GFR > 60 Hgb A1c (Clinic) 12.6 H AST 18 ALT 27 Alkaline Phosphatase 77 Triglycerides 523 H Cholesterol 299 H LDL Cholesterol, Calc TNP HDL Cholesterol 51 TSH 1.17 Urine Creatinine 61.06 Urine Microalbumin 164.0 Microalb/Creat Ratio 268.5 H 04/06/24 08:39 Creatinine Estimated GFR Hgb A1c (Clinic) 10.6 H AST ALT Alkaline Phosphatase Triglycerides Cholesterol LDL Cholesterol, Calc HDL Cholesterol TSH Urine Creatinine Urine Microalbumin Microalb/Creat Ratio Assessment & Plan Assessment & Plan (1) Type 2 diabetes mellitus with microalbuminuria, without long-term current use of insulin: Code(s): E11.29 - Type 2 diabetes mellitus with other diabetic kidney complication; R80.9 - Proteinuria, unspecified Category: Medical Plan Patient declines CGM. Sent glucometer to the pharmacy. Declines referral to simulation educator and hitch technician. Diabetic diet reviewed. Continue Tradjenta 5 mg. Increase metformin to 1000 mg twice daily. Switch to ER formulation which can be better tolerated in terms of GI side effects. Discussed pathophysiology of Type II Diabetes Mellitus with the patient in detail.? I explained the mcfp risks and complications associated with uncontrolled diabetes including nephropathy, neuropathy, peripheral vascular disease, retinopathy, increased risk of heart disease and stroke.? Discussed lifestyle modification with the patient. Recommended 30 minutes of moderately vigorous exercise 5 days per week to promote weight loss. Follow-up in 3 months for diabetes. Orders: Orders AMB Hemoglobin A1c Today E11.29 - Type 2 diabetes mellitus with other diabetic kidney complication, R80.9 - Proteinuria, unspecified Medications: New blood-glucose meter (FreeStyle Lite Meter kit) 3 times a day to test blood glucose 1 ea 0RF E11.9 - Type 2 diabetes mellitus without complications blood sugar diagnostic (FreeStyle Lite Strips) As directed to check glucose up to 3 times daily 100 ea 5RF lancets (FreeStyle Lancets) Use as directed to monitor glucose up to 3 times daily 100 ea 5RF metformin ER 1,000 mg (2 x 500 mg) PO BID 360 tabs 1RF 90 days Discontinued metformin Discontinued Reason: Doctor's Order 500 mg PO BID 180 tabs 0RF E11.9 - Type 2 diabetes mellitus without complications Coding Level of Care Code New Pt Level 4 (47739) Complex EM visit Add On G2211 Diagnoses Type 2 diabetes mellitus with microalbuminuria, without long-term current use of insulin E11.29; R80.9
[2024-07-06 10:49] VITALS: BP 116/84; PULSE 109; BMI 30.6
[2024-07-06 12:12] LABS: Glucose, Whole Blood 228 mg/dL (60-115)
== END 2024-07-06 11:56 | disposition home or self-care (01) ==
PROVIDERS: PCP Internal Medicine; Visit Provider Physician Assistant Medical
DX: E11.29 Type 2 diabetes mellitus with other diabetic kidney complication (principal); R80.9 Proteinuria, unspecified
CPT/HCPCS: 99204

== ENCOUNTER → 2024-07-06 10:38 | Outpatient (BNVA) | payer OTHER, SELFPAY | PROVIDERS: PCP Internal Medicine; Visit Provider Physician Assistant Medical | DX: E11.29 Type 2 diabetes mellitus with other diabetic kidney complication (principal); R80.9 Proteinuria, unspecified; Z79.84 Long term (current) use of oral hypoglycemic drugs | CPT/HCPCS: 82947; 83036 ==

== ENCOUNTER 2024-07-13 09:24 | Outpatient (AMB) | payer OTHER, SELFPAY ==
--- NOTE | 2024-07-13 09:35 | MHC.OFFVIS ---
Vital Signs 07/13/24 09:39 Height 5 ft 8 in Weight 201 lb BMI 30.6 Intake Visit Reasons: OV - right knee OA Intake Note: Harsha is a 68 year old male who presents today as a new patient for a evaluation of his right knee OA. Patient reports he is doing well, no pain at the moment. He mentions that he wears his knee brace when he is doing a lot of walking and standing. Allergies No Known Allergies Allergy (Verified 07/06/24 10:50) HPI HPI OV - right knee OA: Details: 69-year-old male who presents in the office today for a follow-up of right knee osteoarthritis. I last saw the patient on 04/12/24 when we discussed the role of cortisone injections however, due to his A1c being elevated deferred at that time. He was given a genumed knee brace and referred to physical therapy. ? ? While in the office today, the patient reports he is doing well and has no pain in the office today. He confirms the use of the knee brace and has increased his walking and standing. ? ? Patient has a medical history of diabetes mellitus. His A1c on 07/06/24 was 8.7%.? 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 No ecchymosis, erythema, or joint effusion. No tenderness to palpation along the medial or lateral joint lines. Full knee extension and flexion. Crepitus felt with ROM. NVI. Assessment & Plan Assessment & Plan (1) Osteoarthritis of right knee: Code(s): M17.11 - Unilateral primary osteoarthritis, right knee Category: Medical (2) Diabetes mellitus: Code(s): E11.9 - Type 2 diabetes mellitus without complications Category: Medical Qualifiers: Diabetes mellitus complication detail: with diabetic microalbuminuria Diabetes mellitus complication status: with kidney complications Diabetes mellitus terminal carman insulin use: without terminal carman use Diabetes mellitus type: type 2 Qualified Code(s): E11.29 - Type 2 diabetes mellitus with other diabetic kidney complication; R80.9 - Proteinuria, unspecified Plan Mr. Jeter is a 69-year-old male who presents in the office today for a follow-up of right knee osteoarthritis. I last saw the patient on 04/12/24 when we discussed the role of cortisone injections however, due to his A1c being elevated deferred at that time. He was given a genumed knee brace and referred to physical therapy. ? ? While in the office today, the patient reports he is doing well and has no pain in the office today. He confirms the use of the knee brace and has increased his walking and standing. ? ? Patient has a medical history of diabetes mellitus. His A1c on 07/06/24 was 8.7%.? ? We again discussed the role of cortisone injections during today?s encounter. Although, he has continued to make progress towards decreasing his A1c he has decided to defer the injection at this time. He states his pain is intermittent but confirms some relief with the use of the knee brace since his last encounter. Therefore, follow-up will be PRN, or sooner if needed. ? Patient Instructions: Scribed by Patricia Lopez director of medical review, for Loretta Mckeon PA-C on 07/13/2024 at 9:26 am, EST.? Coding Level of Care Code Est Pt Level 3 (95189) Diagnoses Osteoarthritis of right knee M17.11 Type 2 diabetes mellitus with diabetic microalbuminuria, without long-term current use of insulin E11.29; R80.9 Diabetes mellitus complication detail: with diabetic microalbuminuria Diabetes mellitus complication status: with kidney complications Diabetes mellitus terminal carman insulin use: without intermediate use Diabetes mellitus type: type 2
[2024-07-13 09:39] VITALS: BMI 30.6
== END 2024-07-13 09:59 | disposition home or self-care (01) ==
PROVIDERS: PCP Internal Medicine; Visit Provider Physician Assistant
DX: M17.11 Unilateral primary osteoarthritis, right knee (principal); E11.29 Type 2 diabetes mellitus with other diabetic kidney complication; R80.9 Proteinuria, unspecified
CPT/HCPCS: 99213

== ENCOUNTER → 2024-07-13 09:24 | Outpatient (BNVA) | payer OTHER, SELFPAY | PROVIDERS: PCP Internal Medicine; Visit Provider Physician Assistant ==

== ENCOUNTER 2024-08-10 09:19 | Outpatient (REF) | payer OTHER, SELFPAY ==
[2024-08-10 09:38] LABS: MANUAL DIFF FLAG NO
[2024-08-10 10:09] LABS: Basophils Absolute Auto 0.1 X10*3/uL (0.0-0.2); Basophils Percent Auto 0.6 % (0-2); Eosinophils Absolute Auto 0.5 X10*3/uL (0.0-0.4); Eosinophils Percent Auto 6.3 % (0-4); Imm Gran Abs Auto 0.05 X10*3/uL (0.00-0.03); Imm Gran Pct Auto 0.6 % (0.0-0.4); Lymphocytes Absolute Auto 1.4 X10*3/uL (1.2-4.9); Lymphocytes Percent Auto 17.1 % (20-40); Mean Corpuscular HGB Conc 35.9 g/dl (31.0-36.0); Mean Corpuscular Hemoglobin 32.6 pg (27.0-33.0); Mean Corpuscular Volume 90.9 fL (80.0-98.0); Mean Platelet Volume 11.4 fL (9.4-12.4); Monocytes Absolute Auto 0.8 X10*3/uL (0.1-1.2); Neutrophils Absolute Auto 5.5 x10*3/uL (2.0-8.3); Neutrophils Percent Auto 65.4 % (45-73); Platelet Count 207 X10*3/uL (160-400); Red Blood Count 4.29 X10*6/uL (4.60-5.80); Red Cell Distribution Width 11.7 % (11.0-16.0); White Blood Count 8.4 X10*3/uL (4.8-10.8)
[2024-08-10 10:24] LABS: Appearance Urine Clear; Color Urine Yellow; Glucose Urine UA Negative (Negative); Leukocyte Esterase Urine Negative (Negative); Nitrite Urine Negative (Negative); PH 7.5 (5.0-9.0); UMIC TRIGGER UACC YES; Urine Blood Negative (Negative); Urine Ketones Negative (Negative); Urine Protein 30 (1+) mg/dL (Neg-Trace)
[2024-08-10 10:26] LABS: Bacteria Urine None Seen (None Seen); Hyaline Casts Urine 0-2 /LPF (0-2); RBC Urine 0-2 /HPF (0-2); Squamous Epithelial Cell Urine 0-2 /HPF (0-2); WBC Urine 0-5 /HPF (0-5)
[2024-08-10 10:51] LABS: Estimated Average Glucose 177 mg/dL; Hemoglobin A1C 222.0004 umol/L; Hemoglobin A1c % 7.8 % (<6.0); Total Hemoglobin (HGBA1C) 3592.2284 umol/L
[2024-08-10 10:57] LABS: Alanine Aminotransferase 18 U/L (0-40); Alkaline Phosphatase 63 U/L (39-117); Anion Gap 12 (12-20); Aspartate Amino Transferase 18 U/L (5-37); Bilirubin Total 0.7 mg/dL (0.0-1.0); Blood Urea Nitrogen 7 mg/dL (9-16); Calcium 9.4 mg/dL (8.4-10.2); Carbon Dioxide 24 mmol/L (22-29); Chloride 96 mmol/L (96-108); Cholesterol 202 mg/dL (<200); Estimated Glomerular Filt Rate > 60; Glucose Fasting 181 mg/dL (60-99); HDL Cholesterol 44 mg/dL (>40); LDL Cholesterol Calculated 109 mg/dL (<100); Potassium 4.2 mmol/L (3.3-5.1); Sodium 128 mmol/L (135-145); Total Protein 7.2 g/dL (6.5-8.0); Triglycerides 248 mg/dL (<150)
[2024-08-10 11:16] LABS: TSH reflex Free T4 1.64 uIU/mL (0.32-4.0); Vitamin D 25-OH Total 38.4 ng/mL (>30)
[2024-08-10 11:22] LABS: Creatinine Urine 45.91 mg/dL; Microalbum/Creatinine Ratio Ur 374.6 ug/mg cr (<30)
== END 2024-08-10 09:20 | disposition home or self-care (01) ==
LOC: HO.LAB 09:19
PROVIDERS: PCP Internal Medicine; Visit Provider Internal Medicine
DX: D64.9 Anemia, unspecified (principal); E78.00 Pure hypercholesterolemia, unspecified; E11.9 Type 2 diabetes mellitus without complications; E55.9 Vitamin D deficiency, unspecified
CPT/HCPCS: 36415; 80053; 80061; 81001; 82043; 82306; 82570; 83036; 84443; 85025

== ENCOUNTER 2024-08-17 10:30 | Outpatient (AMB) | payer OTHER, SELFPAY ==
[2024-08-17 10:33] VITALS: BP 140/82; PULSE 98; O2SAT 97
--- NOTE | 2024-08-17 10:33 | MHC.PC.OV ---
Vital Signs 08/17/24 10:33 08/17/24 11:04 Height 5 ft 8 in Weight 197 lb BMI 30.0 BP 140/82 H 128/80 Blood Pressure Location Lt brachial Lt brachial Position Sitting Sitting Pulse 98 Pulse Source Pulse Oximeter Pulse Oximetry (%) 97 Oxygen Delivery Method Room Air Intake Visit Reasons: DM, hyperlipidemia, HTN Tinner Automatic Required: No Accompanied by: Self / Same As Patient Allergies No Known Allergies Allergy (Verified 08/17/24 11:01) Medication List - Last Reconciled 08/17/24 by Marino Hernandez MD blood sugar diagnostic (FreeStyle Lite Strips) As directed to check glucose up to 3 times daily blood-glucose meter (FreeStyle Lite Meter kit) 3 times a day to test blood glucose lancets (FreeStyle Lancets) Use as directed to monitor glucose up to 3 times daily linagliptin (Tradjenta) 5 mg PO QAM 90 days lisinopril 5 mg PO DAILY 90 days metformin ER 1,000 mg (2 x 500 mg) PO BID 90 days Tobacco use date assessed: 08/17/24 Fall risk assessment: No Falls in past year Last assessed Fall Risk: 08/17/24 Dental Screening Dental Screen Date: 08/17/24 Did you have a dental visit in the last 12 months?: No Did you have a dental problem in the last 6 months where you did not have access to dental care?: No Was dental information given to patient?: No HPI DM, hyperlipidemia, HTN HPI Details Patient comes in today for his follow up visit States that he feels okay He denies any headaches or dizziness Denies any chest pains, no increased SOB No nausea/vomiting, no abdominal pain No change in bowel habits noted States that his cataract surgery in June 2024 was postponed by ophthalmology due to his inadequately controlled DM at the time He is now following up with endocrinology for his diabetes and feels that his blood sugar control has improved a lot over the past few months He had his follow up labs done last week - to discuss his results [facility] Medical History Obesity (BMI 30-39.9) Vitamin D deficiency Essential hypertension Mixed hyperlipidemia Hearing impairment Overweight (BMI 25.0-29.9) Right knee pain Diabetes mellitus Surgical History History of colonoscopy History of repair of ACL Social History Housing: Condominium Alcohol intake: current Alcohol intake frequency: 0-2 drinks per day Patient Tobacco Use Status: Former Tobacco user e-Cigarette/Vaping Use: Never Used Second Hand Smoke Exposure: Yes service: Yes ([employer]) Current occupational status: employed 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 1. Little interest or pleasure in doing things: not at all 2. Feeling down, depressed, or hopeless: not at all 3. Trouble falling or staying asleep, or sleeping too much: not at all 4. Feeling tired or having little energy: not at all 5. Poor appetite or overeating: not at all 6. Feeling bad about yourself - or that you are a failure or have let yourself or your family down: not at all 7. Trouble concentrating on things, such as reading the newspaper or watching television: not at all 8. Moving or speaking so slowly that other people could have noticed. Or the opposite - being so fidgety or restless that you have been moving around a lot more than usual: not at all 9. Thoughts that you would be better off or of hurting yourself in some way: not at all Total score: 0 Depression Screening Interpretation: Negative Depression Screening Done: Yes 99134 - PHQ-9 Billing: Yes Source: Developed by Drs. Charly Gutierrez, Ada Gustafson, Marino Sadler and colleagues, with an educational socorro from [employer]. Thrive Questionnaire Date Thrive assessed: 08/17/24 I am a: Patient What is your living situation today?: I have a steady place to live Within the past 12 months, did the food you bought not last and you didn't have the money to get more?: Never true Within the past 12 months, did you worry whether your food would run out before you got money to buy more?: Never true Do you have trouble paying for medicines?: No Do you have trouble getting transportation to medical appointments?: No Do you have trouble paying your heating and electricity bill?: No Do you have trouble taking care of your child, family member or friend?: No Do you have trouble with day-to-day activities such as bathing, preparing meals, shopping, managing finances, etc.?: No Are you currently unemployed and looking for a job?: No Are you interested in more education?: No Please select the resources that you would like help with: None Currently or been in a relationship where the following occur: No concerns reported THRIVE Score: 0 AUDIT C Alcohol Use Questionnaire (AUDIT-C) 1. How often do you have a drink containing alcohol?: 2-3 times a week 2. How many drinks containing alcohol do you have on a typical day when you are drinking?: 1 or 2 3. How often do you have six or more drinks on one occasion?: Monthly Total Score: 5 Score Reviewed/Action Taken: Yes JORI-7 AMB Questionnaire JORI-7 Date JORI - 7 assessed: 08/17/24 Feeling nervous, anxious, or on edge: 0 = Not at all Not being able to stop or control worryin = Not at all Worrying too much about different things: 0 = Not at all Trouble relaxin = Not at all Being so restless that it is hard to sit still: 0 = Not at all Becoming easily annoyed or irritable: 0 = Not at all Feeling afraid as if something awful might happen: 0 = Not at all Total JORI-7 score (0-4 normal; 5-9 mild; 10-14 moderate; 15-21 severe): 0 Source: Developed by Drs. Charly Gutierrez, Ada Gustafson, Marino Sadler and colleagues, with an educational socorro from [employer]. Review of Systems Const Denies chills, Denies fatigue, Denies fever(s) and Denies headache(s) ENT Denies dysphagia, Denies dizziness, Denies otalgia, Denies headache(s), Denies neck pain, Denies odynophagia and Denies sore throat Card Denies chest pain, Denies palpitations and Denies dyspnea Resp Denies chest congestion, Denies cough and Denies dyspnea GI Denies abdominal pain, Denies constipation, Denies dysphagia, Denies heartburn, Denies diarrhea, Denies nausea, Denies odynophagia and Denies vomiting Denies dysuria, Denies nocturia and Denies urinary frequency Musc Details: (+) on and off pain over the anterior aspect of the left thigh Denies back pain and Denies neck pain Skin/Breast Denies rash Neuro Denies dizziness and Denies headache(s) Endo Denies fatigue and Denies palpitations Physical exam (Primary Care) Vital Signs: Last Vital Signs Pulse 98 08/17/24 10:33 BP 140/82 H 08/17/24 10:33 Pulse Ox 97 08/17/24 10:33 Oxygen Delivery Method Room Air 08/17/24 10:33 BMI result Body Mass Index 30.0 Tobacco/Smoking Status: Tobacco use Status Tobacco use date assessed 08/17/24 08/17/24 10:37 Patient Tobacco Use Status Former Tobacco user 08/17/24 10:37 e-Cigarette/Vaping Use Never Used 08/17/24 10:37 PHQ-9: PHQ-9 Score PHQ-9: Total score 0 08/17/24 10:37 Depression Screening Interpretation: Negative Thrive Assessment: Date of Thrive Assessment Date Thrive assessed 08/17/24 08/17/24 10:37 Currently or been in a relationship where the following occur: No concerns reported Const General: no acute distress and alert HENMT Ears: TM's normal bilaterally and EAC's normal Throat: Yes posterior oropharynx normal and Yes tonsils normal (no TP congestion) Neck Neck: Yes no lymphadenopathy and Yes supple Thyroid: Thyroid normal Resp Auscultation: clear to auscultation bilaterally, no rales and no wheezes Cardio Rate: regular rate Rhythm: regular rhythm Heart sounds: no murmurs GI Palpation (GI): Soft to palpation and nontender Auscultation: normal bowel sounds General: Yes no CVA tenderness Back/Spine/Pelvis Back: no CVA tenderness Thoracic/Lumbar Spine: No lumbar spinal tenderness Skin Rashes: no rashes Extrem General: Yes no clubbing, cyanosis or edema Left lower extremity: hip/thigh Details: no tenderness Office Procedures Flu Questionnaire Does the patient have a severe egg allergy?: No Immunizations Fluarix Triv [id number] (PF) 45 mcg (15 mcg x 3)/0.5 mL IM syringe Performing Provider: Marino Hernandez MD Per[facility] [place] [facility] Documented (not given) by: ALEKSANDER Estrada on 08/17/24 10:37 Reason Not Given: Patient Refused Results Reviewed Results Reviewed: Laboratory Tests 07/06/24 08/10/24 08/10/24 11:01 09:38 09:40 WBC 8.4 Hgb 14.0 Hct 39.0 L Plt Count 207 Sodium 128 L Potassium 4.2 Creatinine 0.85 Estimated GFR > 60 Fasting Glucose 181 H Hgb A1c (Clinic) 8.7 H Hemoglobin A1c % 7.8 H Calcium 9.4 AST 18 ALT 18 Triglycerides 248 H Cholesterol 202 H LDL Cholesterol, Calc 109 H HDL Cholesterol 44 25-OH Vitamin D Total 38.4 TSH 1.64 Ur Specific [place] 1.010 Urine Protein 30 (1+) H Urine Glucose (UA) Negative Urine Blood Negative Urine Nitrite Negative Ur Leukocyte Esterase Negative Microalb/Creat Ratio 374.6 H Coding Level of Care Code Est Pt Level 4 (56728) Complex EM visit Add On G2211 Diagnoses Type 2 diabetes mellitus with microalbuminuria, without long-term current use of insulin E11.29; R80.9 Mixed hyperlipidemia E78.2 Essential hypertension I10 Hyponatremia E87.1 Vitamin D deficiency E55.9 Age-related cataract of both eyes, unspecified age-related cataract type H25.9 Cataract type: age-related Age-related cataract type: unspecified Left thigh pain M79.652 Obesity (BMI 30-39.9) E66.9 Assessment & Plan Assessment & Plan (1) Type 2 diabetes mellitus with microalbuminuria, without long-term current use of insulin: Code(s): E11.29 - Type 2 diabetes mellitus with other diabetic kidney complication; R80.9 - Proteinuria, unspecified Category: Medical Plan: His HgbA1c appears to have improved a lot and is now at 7.8% on his labs done last week (HgbA1c was still at 8.7% early last month) - goal is <7.0% Reinforced diabetic diet Continue Metformin ER 1000 mg BID and Tradjenta 5 mg QD Follow up with endocrinology as scheduled (2) Mixed hyperlipidemia: Code(s): E78.2 - Mixed hyperlipidemia Category: Medical Plan: Results of his labs done last week reviewed and discussed with patient - have advised him that his cholesterol levels have all improved significantly from previous Reinforced low cholesterol diet Will recheck his labs and fasting lipids in 4 months for follow up (3) Essential hypertension: Code(s): I10 - Essential (primary) hypertension Category: Medical Plan: Reinforced low sodium diet - goal is systolic BP of 120 to 130 mm or less, considering the degree now of his albuminuria Continue Lisinopril 5 mg QD Have advised patient that his recent symptoms of a recurrent cough and a tickle in his throat are likely side effects of Lisinopril and if he feels that they are bothersome enough for him, we can try switching him over to an ARB like Losartan instead but patient declined and states that his symptoms are not that bad at this time Have reminded yolanda that he can call to have his Rx changed any time he feels that these symptoms are getting worse (4) Hyponatremia: Code(s): E87.1 - Hypo-osmolality and hyponatremia Category: Medical Plan: This was noted on his recent labs; corrected sodium for his hyperglycemia is still low at 129.29 Patient currently denies any acute symptoms pertinent to this Admits that he used to drink alcohol often but has since stopped drinking almost entirely lately Will continue to monitor this closely and send him for some additional labs in a few months for further evaluation (5) Vitamin D deficiency: Code(s): E55.9 - Vitamin D deficiency, unspecified Category: Medical Plan: Continue Vitamin D3 2000 units QD (6) Cataracts, bilateral: Code(s): H26.9 - Unspecified cataract Category: Medical Qualifiers: Cataract type: age-related Age-related cataract type: unspecified Qualified Code(s): H25.9 - Unspecified age-related cataract Plan: He was originally scheduled to undergo cataract surgery in June 2024 but his surgery was postponed due to his inadequately controlled diabetes at the time Have advised patient now that his diabetes is better controlled and his most recent HgbA1c last week is at 7.8%, he should be able to proceed with his cataract surgery now if he is still interested in getting it done States that he has a follow up appointment with his communication coordinator in a couple of weeks and will let them know that he is now CLEARED for SURGERY (7) Left thigh pain: Code(s): M79.652 - Pain in left thigh Category: Medical Plan: There is currently no reproducible tenderness noted on exam of his left thigh Have advised patient that this may be musculoskeletal or neuropathic in etiology He was concerned about shingles, which I have explained is less likely given the nature of his symptoms but he should be on the lookout for the appearance of any vesicular rash and if they do appear, he is to call us right away regarding this Patient states that the pain does not really bother him too much or keep him up at night and he normally just applies some Lidocaine ointment as needed with (+) relief Have advised him that he can continue doing that if he wants to and can also take OTC Tylenol at bedtime PRN for added relief (8) Obesity (BMI 30-39.9): Code(s): E66.9 - Obesity, unspecified Category: Medical Plan: Reinforced diet/ exercise as tolerated/lose weight Plan Follow up in 4 months Orders: Orders Hemoglobin A1c 4 Months E11.9 - Type 2 diabetes mellitus without complications Comprehensive [place]. Panel Fast 4 Months E78.00 - Pure hypercholesterolemia, unspecified Microalbumin, Random (w Creat) 4 Months E11.9 - Type 2 diabetes mellitus without complications UA CC w/rflx Micro + Cult 4 Months R30.0 - Dysuria Influenza [id number] Immunization Today Z23 - Encounter for immunization Complete Blood Count Auto Diff 4 Months D64.9 - Anemia, unspecified Lipid Panel 4 Months E78.00 - Pure hypercholesterolemia, unspecified Osmolality Urine 4 Months E87.1 - Hypo-osmolality and hyponatremia Osmolality, Serum 4 Months E87.1 - Hypo-osmolality and hyponatremia
[2024-08-17 11:04] VITALS: BP 128/80
== END 2024-08-17 11:11 | disposition home or self-care (01) ==
PROVIDERS: PCP Internal Medicine; Visit Provider Internal Medicine
DX: E11.29 Type 2 diabetes mellitus with other diabetic kidney complication (principal); R80.9 Proteinuria, unspecified; E66.811 Obesity, class 1; Z68.30 Body mass index [BMI] 30.0-30.9, adult; E78.2 Mixed hyperlipidemia; I10 Essential (primary) hypertension; E87.1 Hypo-osmolality and hyponatremia; E55.9 Vitamin D deficiency, unspecified; H25.9 Unspecified age-related cataract; M79.652 Pain in left thigh

== ENCOUNTER → 2024-08-17 10:30 | Outpatient (BNVA) | payer OTHER, SELFPAY | PROVIDERS: PCP Internal Medicine; Visit Provider Internal Medicine | DX: E11.29 Type 2 diabetes mellitus with other diabetic kidney complication (principal); R80.9 Proteinuria, unspecified; E78.2 Mixed hyperlipidemia; I10 Essential (primary) hypertension; E87.1 Hypo-osmolality and hyponatremia; E55.9 Vitamin D deficiency, unspecified; H25.9 Unspecified age-related cataract; M79.652 Pain in left thigh; E66.9 Obesity, unspecified; Z68.30 Body mass index [BMI] 30.0-30.9, adult; Z79.899 Other long term (current) drug therapy; Z28.21 Immunization not carried out because of patient refusal | CPT/HCPCS: 90471; 96127 ==

== ENCOUNTER 2024-10-05 10:27 | Outpatient (AMB) | payer OTHER, SELFPAY ==
--- NOTE | 2024-10-05 10:33 | MHC.OFFVIS ---
Vital Signs 10/05/24 10:34 Height 5 ft 8 in Weight 196 lb 10.437 oz BMI 29.9 BP 138/76 Blood Pressure Location Rt brachial Position Sitting Pulse 103 H Pulse Source Pulse Oximeter Intake Visit Reasons: Diabetes/CONF Intake Note: Patient present today to follow up on Type 2 Diabetes Mellitus. Last Diabetic Eye exam: Within the year Last Podiatry Visit: Does not see a Medical Office Receptionist Random Glucose: 157 mg/dl HgA1C: 7.8% 08/10/24 Wildlife Refuge Specialist Required: No Accompanied by: Self / Same As Patient Allergies No Known Allergies Allergy (Verified 10/05/24 10:36) HPI Comments Details: This is a 69-year-old male with a past medical history of type 2 diabetes, hypertension, obesity and hyperlipidemia presenting diabetes management. He was diagnosed with diabetes around the time of the pandemic. Hemoglobin a1c 7.8% today 10/05/24 down from 8.7%. POC 157. Predominantly checks BG in the morning when he fasts. Max: 221 Low: 133 Average: 171 Current medication regimen: Metformin ER 1000 mg twice daily, Tradjenta 5 mg daily. Compliance issues: No medication compliance issues. Diet: Decreased alcohol and carbohydrates and lost 4-6 lbs. Nonsmoker. 3-4 days per week he swims at the [employer]. Hypoglycemia symptoms: None Hyperglycemia symptoms: None Eye exam: up to date Microvascular complications: neuropathy, nephropathy (microalbumin) Macrovascular complications: None ROS: Constitutional: No unexplained weight loss, fever, chills, fatigue or night sweats. Eyes: No vision changes, blurry vision, double vision Respiratory: No shortness of breath Cardiovascular: No chest pain Endocrine: No cold or heat intolerance. No polyuria or polydipsia. Physical exam: Constitutional: Alert, in no distress. Head: Normocephalic. Eyes: Pupils are equal, round and reactive to light. Extraocular muscles intact. Respiratory: Clear to auscultation. Cardiovascular: S1 S2 regular. No murmurs. 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 Patient declines CGM-unlikely to be covered by insurance anyways since he is not on insulin. He is compliant with fingerstick glucose monitoring. Declines referral to clinical trial educator and senior business broker. Diabetic diet reviewed. Patient has microalbuminuria so we will discontinue Tradjenta and start Jardiance 10 mg daily initially. Side effects reviewed including LEOBARDO, genitourinary infections. Reviewed signs and symptoms to monitor for while on this medication. Return to lab 10 days after initiating Jardiance to check creatinine. Continue metformin extended release 1000 mg twice daily. Discussed pathophysiology of Type II Diabetes Mellitus with the patient in detail.? 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 Discussed lifestyle modification with the patient. Recommended 30 minutes of moderately vigorous exercise 5 days per week to promote weight loss. Follow-up in 3 months for diabetes. Orders: Orders Creatinine Today E11.29 - Type 2 diabetes mellitus with other diabetic kidney complication, R80.9 - Proteinuria, unspecified Medications: New empagliflozin (Jardiance) 10 mg PO QAM 90 tabs 1RF Refilled metformin ER 1,000 mg (2 x 500 mg) PO BID 90 days 360 tabs 3RF Discontinued linagliptin (Tradjenta) Discontinued Reason: Doctor's Order 5 mg PO QAM 90 days 90 tabs 1RF Patient Instructions: Continue Metformin 1000 mg twice daily. When you receive Jardiance 10 mg from the pharmacy you can stop Tradjenta and start this medication. 10 days after you start Jardiance please go to the lab to check kidney function. Coding Level of Care Code Est Pt Level 4 (48416) Complex EM visit Add On G2211 Diagnoses Type 2 diabetes mellitus with microalbuminuria, without long-term current use of insulin E11.29; R80.9
[2024-10-05 10:34] VITALS: BP 138/76; PULSE 103; BMI 29.9
[2024-10-05 10:45] LABS: Glucose, Whole Blood 157 mg/dL (60-115)
== END 2024-10-05 11:13 | disposition home or self-care (01) ==
PROVIDERS: PCP Internal Medicine; Visit Provider Physician Assistant Medical
DX: E11.29 Type 2 diabetes mellitus with other diabetic kidney complication (principal); R80.9 Proteinuria, unspecified

== ENCOUNTER → 2024-10-05 10:27 | Outpatient (BNVA) | payer OTHER, SELFPAY | PROVIDERS: PCP Internal Medicine; Visit Provider Physician Assistant Medical | DX: E11.29 Type 2 diabetes mellitus with other diabetic kidney complication (principal); R80.9 Proteinuria, unspecified; E78.5 Hyperlipidemia, unspecified; I10 Essential (primary) hypertension | CPT/HCPCS: 82947 ==

== ENCOUNTER 2024-11-05 13:22 | Outpatient (AMB) | payer OTHER, SELFPAY ==
--- NOTE | 2024-11-05 13:35 | A.OFFPC_ITS ---
Vital Signs 11/05/24 13:36 Height 5 ft 8 in Weight 197 lb BMI 30.0 BP 136/84 Blood Pressure Location Lt brachial Position Sitting Pulse 109 H Pulse Source Pulse Oximeter Pulse Oximetry (%) 98 Oxygen Delivery Method Room Air Intake Visit Reasons: Cataract L Eye 11/24 - R Eye 12/08 Cancer Registrar Required: No Accompanied by: Self / Same As Patient Allergies No Known Allergies Allergy (Verified 11/05/24 13:54) Medication List - Last Reconciled 11/05/24 by Marino Hernandez MD blood sugar diagnostic (FreeStyle Lite Strips) As directed to check glucose up to 3 times daily blood-glucose meter (FreeStyle Lite Meter kit) 3 times a day to test blood glucose empagliflozin (Jardiance) 10 mg PO QAM lancets (FreeStyle Lancets) Use as directed to monitor glucose up to 3 times daily lisinopril 5 mg PO DAILY 90 days metformin ER 1,000 mg (2 x 500 mg) PO BID 90 days Tobacco use date assessed: 11/05/24 Fall risk assessment: 1 Fall in past year Last assessed Fall Risk: 11/05/24 Dental Screening Dental Screen Date: 11/05/24 Did you have a dental visit in the last 12 months?: No Did you have a dental problem in the last 6 months where you did not have access to dental care?: No Was dental information given to patient?: No HPI Cataract L Eye 11/24 - R Eye 12/08 HPI Details Patient comes in today at the request of Dr. Oralia Pedraza of [facility] for a preoperative medical examination for clearance for surgery He is scheduled for cataract extraction/phacoemusification with IOL of the left eye under MAC on 11/24/2024, followed by the same procedure on the right eye a couple of weeks later on 12/08/2024 Patient states that he feels okay He denies any headaches or dizziness Denies any chest pains, no SOB No nausea/vomiting, no abdominal pain No change in bowel habits noted [facility] Medical History Obesity (BMI 30-39.9) Vitamin D deficiency Essential hypertension Mixed hyperlipidemia Hearing impairment Overweight (BMI 25.0-29.9) Right knee pain Diabetes mellitus Surgical History History of colonoscopy History of repair of ACL Social History Housing: Condominium Alcohol intake: current Alcohol intake frequency: 0-2 drinks per day Patient Tobacco Use Status: Former Tobacco user e-Cigarette/Vaping Use: Never Used Second Hand Smoke Exposure: Yes service: Yes ([employer]) Current occupational status: employed 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 1. Little interest or pleasure in doing things: not at all 2. Feeling down, depressed, or hopeless: not at all 3. Trouble falling or staying asleep, or sleeping too much: not at all 4. Feeling tired or having little energy: not at all 5. Poor appetite or overeating: not at all 6. Feeling bad about yourself - or that you are a failure or have let yourself or your family down: not at all 7. Trouble concentrating on things, such as reading the newspaper or watching television: not at all 8. Moving or speaking so slowly that other people could have noticed. Or the opposite - being so fidgety or restless that you have been moving around a lot more than usual: not at all 9. Thoughts that you would be better off or of hurting yourself in some way: not at all Total score: 0 Depression Screening Interpretation: Negative Depression Screening Done: Yes 21712 - PHQ-9 Billing: Yes Source: Developed by Drs. Charly Gutierrez, Ada Gustafson, Marino Sadler and colleagues, with an educational socorro from [employer]. Thrive Questionnaire Date Thrive assessed: 11/05/24 I am a: Patient What is your living situation today?: I have a steady place to live Within the past 12 months, did the food you bought not last and you didn't have the money to get more?: Never true Within the past 12 months, did you worry whether your food would run out before you got money to buy more?: Never true Do you have trouble paying for medicines?: No Do you have trouble getting transportation to medical appointments?: No Do you have trouble paying your heating and electricity bill?: No Do you have trouble taking care of your child, family member or friend?: No Do you have trouble with day-to-day activities such as bathing, preparing meals, shopping, managing finances, etc.?: No Are you currently unemployed and looking for a job?: No Are you interested in more education?: No Please select the resources that you would like help with: None Currently or been in a relationship where the following occur: No concerns reported THRIVE Score: 0 AUDIT C Alcohol Use Questionnaire (AUDIT-C) 1. How often do you have a drink containing alcohol?: 2-3 times a week 2. How many drinks containing alcohol do you have on a typical day when you are drinking?: 1 or 2 3. How often do you have six or more drinks on one occasion?: Monthly Total Score: 5 Score Reviewed/Action Taken: Yes JORI-7 AMB Questionnaire JORI-7 Date JORI - 7 assessed: 11/05/24 Feeling nervous, anxious, or on edge: 0 = Not at all Not being able to stop or control worryin = Not at all Worrying too much about different things: 0 = Not at all Trouble relaxin = Not at all Being so restless that it is hard to sit still: 0 = Not at all Becoming easily annoyed or irritable: 0 = Not at all Feeling afraid as if something awful might happen: 0 = Not at all Total JORI-7 score (0-4 normal; 5-9 mild; 10-14 moderate; 15-21 severe): 0 Source: Developed by Drs. Charly Gutierrez, Ada Gustafson, Marino Sadler and colleagues, with an educational socorro from [employer]. Review of Systems Const Denies chills, Denies fatigue, Denies fever(s) and Denies headache(s) Eyes Reports blurry vision (in both eyes, especially when he is driving at night) ENT Denies dysphagia, Denies dizziness, Denies otalgia, Denies headache(s), Denies neck pain, Denies odynophagia and Denies sore throat Card Denies chest pain, Denies palpitations and Denies dyspnea Resp Denies chest congestion, Denies cough and Denies dyspnea GI Denies abdominal pain, Denies constipation, Denies dysphagia, Denies heartburn, Denies diarrhea, Denies nausea, Denies odynophagia and Denies vomiting Denies dysuria, Denies nocturia and Denies urinary frequency Musc Details: (+) on and off pain over the anterior aspect of the left thigh Denies back pain and Denies neck pain Skin/Breast Denies rash Neuro Denies dizziness and Denies headache(s) Endo Denies fatigue and Denies palpitations Physical exam (Primary Care) Vital Signs: Last Vital Signs Pulse 109 H 11/05/24 13:36 BP 136/84 11/05/24 13:36 Pulse Ox 98 11/05/24 13:36 Oxygen Delivery Method Room Air 11/05/24 13:36 BMI result Body Mass Index 30.0 Tobacco/Smoking Status: Tobacco use Status Tobacco use date assessed 11/05/24 11/05/24 13:41 Patient Tobacco Use Status Former Tobacco user 11/05/24 13:41 e-Cigarette/Vaping Use Never Used 11/05/24 13:41 PHQ-9: PHQ-9 Score PHQ-9: Total score 0 11/05/24 14:02 Depression Screening Interpretation: Negative Thrive Assessment: Date of Thrive Assessment Date Thrive assessed 11/05/24 11/05/24 13:41 Currently or been in a relationship where the following occur: No concerns reported Const General: no acute distress and alert HENMT Throat: Yes posterior oropharynx normal and Yes tonsils normal (no TP congestion) Neck Neck: Yes supple and No lymphadenopathy Thyroid: Thyroid normal Resp Auscultation: clear to auscultation bilaterally, no rales and no wheezes Cardio Rate: regular rate Rhythm: regular rhythm Heart sounds: no murmurs GI Palpation (GI): Soft to palpation and nontender Auscultation: normal bowel sounds General: Yes no CVA tenderness Back/Spine/Pelvis Back: no CVA tenderness Thoracic/Lumbar Spine: No lumbar spinal tenderness Skin Rashes: no rashes Extrem General: Yes no clubbing, cyanosis or edema Left lower extremity: hip/thigh Details: no tenderness Coding Level of Care Code Est Pt Level 4 (77705) Diagnoses Preoperative examination Z01.818 Age-related cataract of both eyes, unspecified age-related cataract type H25.9 Cataract type: age-related Age-related cataract type: unspecified Type 2 diabetes mellitus with microalbuminuria, without long-term current use of insulin E11.29; R80.9 Essential hypertension I10 Mixed hyperlipidemia E78.2 Hyponatremia E87.1 Vitamin D deficiency E55.9 Obesity (BMI 30-39.9) E66.9 Additional Codes PHQ-9 - 19356 - PHQ-9 Billing: Yes ([id number]) Assessment & Plan Assessment & Plan (1) Preoperative examination: Code(s): Z01.818 - Encounter for other preprocedural examination Category: Medical Plan: Patient currently presents with acceptable risks for planned low cardiac-risk procedure (2) Cataracts, bilateral: Code(s): H26.9 - Unspecified cataract Category: Medical Qualifiers: Cataract type: age-related Age-related cataract type: unspecified Qualified Code(s): H25.9 - Unspecified age-related cataract Plan: He is scheduled for cataract extraction/phacoemusification with IOL of the left eye under MAC on 11/24/2024, followed by the same procedure on the right eye a couple of weeks later on 12/08/[address] Oralia Pedraza of [facility] (3) Type 2 diabetes mellitus with microalbuminuria, without long-term current use of insulin: Code(s): E11.29 - Type 2 diabetes mellitus with other diabetic kidney complication; R80.9 - Proteinuria, unspecified Category: Medical Plan: His in-office HgbA1c done today is at 7.2% (his HgbA1c was at 7.8% back in August 2024) - goal is at least <7.0% Reinforced diabetic diet Continue Metformin ER 1000 mg BID and Jardiance 10 mg QD Follow up with endocrinology as scheduled (4) Essential hypertension: Code(s): I10 - Essential (primary) hypertension Category: Medical Plan: Reinforced low sodium diet - goal is systolic BP of 120 to 130 mm or less, considering his albuminuria Continue Lisinopril 5 mg QD (5) Mixed hyperlipidemia: Code(s): E78.2 - Mixed hyperlipidemia Category: Medical Plan: Reinforced low cholesterol diet Will recheck his labs and fasting lipids as scheduled next month for follow up (6) Hyponatremia: Code(s): E87.1 - Hypo-osmolality and hyponatremia Category: Medical Plan: This was noted on his recent labs; corrected sodium for his hyperglycemia was still low at 129.29 Patient currently denies any acute symptoms related to this Admits that he used to drink alcohol often but has since stopped drinking almost entirely over the past couple of moths Will continue to monitor this closely (7) Vitamin D deficiency: Code(s): E55.9 - Vitamin D deficiency, unspecified Category: Medical Plan: Continue Vitamin D3 2000 units QD (8) Obesity (BMI 30-39.9): Code(s): E66.9 - Obesity, unspecified Category: Medical Plan: Reinforced diet/ exercise as tolerated/lose weight Plan Patient is currently medically optimized and does not appear to have any contraindications to undergo cataract surgeries as planned - he is now cleared for surgery To return as scheduled next month
[2024-11-05 13:36] VITALS: BP 136/84; PULSE 109; O2SAT 98
== END 2024-11-05 14:09 | disposition home or self-care (01) ==
PROVIDERS: PCP Internal Medicine; Visit Provider Internal Medicine
DX: E11.29 Type 2 diabetes mellitus with other diabetic kidney complication (principal); Z01.818 Encounter for other preprocedural examination; E66.811 Obesity, class 1; Z68.30 Body mass index [BMI] 30.0-30.9, adult; H25.9 Unspecified age-related cataract; R80.9 Proteinuria, unspecified; I10 Essential (primary) hypertension; E78.2 Mixed hyperlipidemia; E87.1 Hypo-osmolality and hyponatremia; E55.9 Vitamin D deficiency, unspecified

== ENCOUNTER → 2024-11-05 13:22 | Outpatient (BNVA) | payer OTHER, SELFPAY | PROVIDERS: PCP Internal Medicine; Visit Provider Internal Medicine | DX: Z01.818 Encounter for other preprocedural examination (principal); H25.9 Unspecified age-related cataract; E11.29 Type 2 diabetes mellitus with other diabetic kidney complication; R80.9 Proteinuria, unspecified; I10 Essential (primary) hypertension; E78.2 Mixed hyperlipidemia; E87.1 Hypo-osmolality and hyponatremia; E55.9 Vitamin D deficiency, unspecified; E66.9 Obesity, unspecified; Z68.30 Body mass index [BMI] 30.0-30.9, adult; Z79.84 Long term (current) use of oral hypoglycemic drugs; Z79.899 Other long term (current) drug therapy | CPT/HCPCS: 96127 ==

== ENCOUNTER 2024-12-15 10:25 | Outpatient (REF) | payer OTHER, SELFPAY ==
[2024-12-15 10:43] LABS: MANUAL DIFF FLAG NO
[2024-12-15 12:13] LABS: Estimated Average Glucose 160 mg/dL; Hemoglobin A1c % 7.2 % (<6.0); Total Hemoglobin (HGBA1C) 3720.0438 umol/L
[2024-12-15 12:26] LABS: Alanine Aminotransferase 17 U/L (0-40); Albumin Level 4.2 g/dL (3.5-5.0); Alkaline Phosphatase 58 U/L (39-117); Anion Gap 13 (12-20); Aspartate Amino Transferase 22 U/L (5-37); Bilirubin Total 0.4 mg/dL (0.0-1.0); Blood Urea Nitrogen 13 mg/dL (9-16); Calcium 9.6 mg/dL (8.4-10.2); Carbon Dioxide 24 mmol/L (22-29); Chloride 101 mmol/L (96-108); Cholesterol 212 mg/dL (<200); Estimated Glomerular Filt Rate > 60; Glucose Fasting 175 mg/dL (60-99); HDL Cholesterol 50 mg/dL (>40); LDL Cholesterol Calculated 111 mg/dL (<100); Potassium 4.8 mmol/L (3.3-5.1); Sodium 133 mmol/L (135-145); Total Protein 8.1 g/dL (6.5-8.0); Triglycerides 257 mg/dL (<150)
[2024-12-15 12:26] LABS: Creatinine Urine 39.21 mg/dL; Microalbum/Creatinine Ratio Ur 145.3 ug/mg cr (<30)
[2024-12-15 12:28] LABS: Osmolality, Serum 289 mosm/kg (281-305)
[2024-12-15 12:29] LABS: Osmolality Urine 453 mosm/kg (373-1093)
[2024-12-15 12:44] LABS: Appearance Urine Clear; Color Urine Yellow; Glucose Urine UA >=1000 mg/dL (Negative); Leukocyte Esterase Urine Negative (Negative); Nitrite Urine Negative (Negative); UMIC TRIGGER UACC YES; Urine Blood Negative (Negative); Urine Ketones Negative (Negative); Urine Protein Negative (Neg-Trace)
[2024-12-15 12:50] LABS: Bacteria Urine None Seen (None Seen); Hyaline Casts Urine 0-2 /LPF (0-2); RBC Urine 0-2 /HPF (0-2); Squamous Epithelial Cell Urine 0-2 /HPF (0-2); WBC Urine 0-5 /HPF (0-5)
[2024-12-15 14:56] LABS: Basophils Percent Auto 0.3 % (0-2); Eosinophils Absolute Auto 0.1 X10*3/uL (0.0-0.4); Hematocrit 41.7 % (42.0-52.0); Hemoglobin 14.5 g/dl (14.0-18.0); Imm Gran Abs Auto 0.03 X10*3/uL (0.00-0.03); Imm Gran Pct Auto 0.3 % (0.0-0.4); Lymphocytes Percent Auto 21.9 % (20-40); Mean Corpuscular HGB Conc 34.8 g/dl (31.0-36.0); Mean Corpuscular Volume 94.8 fL (80.0-98.0); Mean Platelet Volume 11.9 fL (9.4-12.4); Monocytes Absolute Auto 0.8 X10*3/uL (0.1-1.2); Monocytes Percent Auto 9.1 % (2-11); Neutrophils Absolute Auto 6.2 x10*3/uL (2.0-8.3); Neutrophils Percent Auto 67.4 % (45-73); Platelet Count 244 X10*3/uL (160-400); Red Cell Distribution Width 12.5 % (11.0-16.0); White Blood Count 9.2 X10*3/uL (4.8-10.8)
== END 2024-12-15 10:26 | disposition home or self-care (01) ==
LOC: HO.LAB 10:25
PROVIDERS: Absent Provider Physician Assistant Medical; PCP Internal Medicine; Visit Provider Internal Medicine
DX: D64.9 Anemia, unspecified (principal); E78.00 Pure hypercholesterolemia, unspecified; E11.9 Type 2 diabetes mellitus without complications; E87.1 Hypo-osmolality and hyponatremia
CPT/HCPCS: 36415; 80053; 80061; 81001; 82043; 82570; 83036; 83930; 83935; 85025

== ENCOUNTER 2024-12-21 10:33 | Outpatient (AMB) | payer OTHER, SELFPAY ==
[2024-12-21 10:34] VITALS: BP 122/86; PULSE 98; O2SAT 96; BMI 29.6
--- NOTE | 2024-12-21 10:34 | A.OFFPC_ITS ---
Vital Signs 12/21/24 10:34 Height 5 ft 8 in Weight 195 lb BMI 29.6 BP 122/86 Blood Pressure Location Lt brachial Position Sitting Pulse 98 Pulse Source Pulse Oximeter Pulse Oximetry (%) 96 Oxygen Delivery Method Room Air Intake Visit Reasons: 4 Months f/u Broacher Required: No Accompanied by: Self / Same As Patient Allergies No Known Allergies Allergy (Verified 12/21/24 10:56) Medication List - Last Reconciled 12/21/24 by Marino Hernandez MD blood sugar diagnostic (FreeStyle Lite Strips) As directed to check glucose up to 3 times daily blood-glucose meter (FreeStyle Lite Meter kit) 3 times a day to test blood glucose empagliflozin (Jardiance) 10 mg PO QAM lancets (FreeStyle Lancets) Use as directed to monitor glucose up to 3 times daily lisinopril 5 mg PO DAILY 90 days metformin ER 1,000 mg (2 x 500 mg) PO BID 90 days Tobacco use date assessed: 12/21/24 Fall risk assessment: No Falls in past year Last assessed Fall Risk: 12/21/24 Dental Screening Dental Screen Date: 12/21/24 Did you have a dental visit in the last 12 months?: Yes Did you have a dental problem in the last 6 months where you did not have access to dental care?: No Was dental information given to patient?: Patient has dentist HPI 4 Months f/u HPI Details Patient comes in today for his follow-up visit States that he feels okay He denies any headaches or dizziness Denies any chest pains, no shortness of breath No nausea/vomiting, no abdominal pain No change in bowel habits noted He had his cataract surgery on the left eye done a few weeks ago and states that his surgery went well; he is scheduled for his right eye surgery tomorrow Needs his Lisinopril refilled He had his follow-up labs done last week - to discuss his results [facility] Medical History Obesity (BMI 30-39.9) Vitamin D deficiency Essential hypertension Mixed hyperlipidemia Hearing impairment Overweight (BMI 25.0-29.9) Right knee pain Diabetes mellitus Surgical History History of colonoscopy History of repair of ACL Social History Housing: Condominium Alcohol intake: current Alcohol intake frequency: 0-2 drinks per day Patient Tobacco Use Status: Former Tobacco user e-Cigarette/Vaping Use: Never Used Second Hand Smoke Exposure: Yes service: Yes ([employer]) Current occupational status: employed 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 1. Little interest or pleasure in doing things: not at all 2. Feeling down, depressed, or hopeless: not at all 3. Trouble falling or staying asleep, or sleeping too much: not at all 4. Feeling tired or having little energy: not at all 5. Poor appetite or overeating: not at all 6. Feeling bad about yourself - or that you are a failure or have let yourself or your family down: not at all 7. Trouble concentrating on things, such as reading the newspaper or watching television: not at all 8. Moving or speaking so slowly that other people could have noticed. Or the opposite - being so fidgety or restless that you have been moving around a lot more than usual: not at all 9. Thoughts that you would be better off or of hurting yourself in some way: not at all Total score: 0 Depression Screening Interpretation: Negative Depression Screening Done: Yes 14883 - PHQ-9 Billing: Yes Source: Developed by Drs. Charly Gutierrez, Ada Gustafson, Marino Sadler and colleagues, with an educational socorro from [employer]. Thrive Questionnaire Date Thrive assessed: 12/21/24 I am a: Patient What is your living situation today?: I have a steady place to live Within the past 12 months, did the food you bought not last and you didn't have the money to get more?: Never true Within the past 12 months, did you worry whether your food would run out before you got money to buy more?: Never true Do you have trouble paying for medicines?: No Do you have trouble getting transportation to medical appointments?: No Do you have trouble paying your heating and electricity bill?: No Do you have trouble taking care of your child, family member or friend?: No Do you have trouble with day-to-day activities such as bathing, preparing meals, shopping, managing finances, etc.?: No Are you currently unemployed and looking for a job?: No Are you interested in more education?: No Please select the resources that you would like help with: None Currently or been in a relationship where the following occur: No concerns reported THRIVE Score: 0 AUDIT C Alcohol Use Questionnaire (AUDIT-C) 1. How often do you have a drink containing alcohol?: Monthly or less 2. How many drinks containing alcohol do you have on a typical day when you are drinking?: 3 or 4 3. How often do you have six or more drinks on one occasion?: Less than monthly Total Score: 3 Score Reviewed/Action Taken: Yes JORI-7 AMB Questionnaire JORI-7 Date JORI - 7 assessed: 12/21/24 Feeling nervous, anxious, or on edge: 0 = Not at all Not being able to stop or control worryin = Not at all Worrying too much about different things: 0 = Not at all Trouble relaxin = Not at all Being so restless that it is hard to sit still: 0 = Not at all Becoming easily annoyed or irritable: 0 = Not at all Feeling afraid as if something awful might happen: 0 = Not at all Total JORI-7 score (0-4 normal; 5-9 mild; 10-14 moderate; 15-21 severe): 0 Source: Developed by Drs. Charly Gutierrez, Ada Gustafson, Marino Sadler and colleagues, with an educational socorro from [employer]. Review of Systems Const Denies chills, Denies fatigue, Denies fever(s) and Denies headache(s) ENT Denies dysphagia, Denies dizziness, Denies otalgia, Denies headache(s), Denies neck pain, Denies odynophagia and Denies sore throat Card Denies chest pain, Denies palpitations and Denies dyspnea Resp Denies chest congestion, Denies cough and Denies dyspnea GI Denies abdominal pain, Denies constipation, Denies dysphagia, Denies heartburn, Denies diarrhea, Denies nausea, Denies odynophagia and Denies vomiting Denies dysuria, Denies nocturia and Denies urinary frequency Musc Denies back pain and Denies neck pain Skin/Breast Denies rash Neuro Denies dizziness and Denies headache(s) Endo Denies fatigue and Denies palpitations Physical exam (Primary Care) Vital Signs: Last Vital Signs Pulse 98 12/21/24 10:34 BP 122/86 12/21/24 10:34 Pulse Ox 96 12/21/24 10:34 Oxygen Delivery Method Room Air 12/21/24 10:34 BMI result Body Mass Index 29.6 Tobacco/Smoking Status: Tobacco use Status Tobacco use date assessed 12/21/24 12/21/24 10:40 Patient Tobacco Use Status Former Tobacco user 12/21/24 10:40 e-Cigarette/Vaping Use Never Used 12/21/24 10:40 PHQ-9: PHQ-9 Score PHQ-9: Total score 0 12/21/24 10:56 Depression Screening Interpretation: Negative Thrive Assessment: Date of Thrive Assessment Date Thrive assessed 12/21/24 12/21/24 10:40 Currently or been in a relationship where the following occur: No concerns reported Const General: no acute distress and alert HENMT Ears: TM's normal bilaterally and EAC's normal Throat: Yes posterior oropharynx normal and Yes tonsils normal (no TP congestion) Neck Neck: Yes supple and No lymphadenopathy Thyroid: Thyroid normal Resp Auscultation: clear to auscultation bilaterally, no rales and no wheezes Cardio Rate: regular rate Rhythm: regular rhythm Heart sounds: no murmurs GI Palpation (GI): Soft to palpation and nontender Auscultation: normal bowel sounds General: Yes no CVA tenderness Back/Spine/Pelvis Back: no CVA tenderness Thoracic/Lumbar Spine: No lumbar spinal tenderness Skin Rashes: no rashes Extrem General: Yes no clubbing, cyanosis or edema Results Reviewed Results Reviewed: Laboratory Tests 12/15/24 12/15/24 10:39 10:40 WBC 9.2 Hgb 14.5 Hct 41.7 L Plt Count 244 Sodium 133 L Potassium 4.8 Creatinine 1.00 Estimated GFR > 60 Fasting Glucose 175 H Hemoglobin A1c % 7.2 H Osmolality 289 Calcium 9.6 AST 22 ALT 17 Triglycerides 257 H Cholesterol 212 H LDL Cholesterol, Calc 111 H HDL Cholesterol 50 Ur Specific [place] 1.020 Urine Protein Negative Urine Glucose (UA) >=1000 H Urine Blood Negative Urine Nitrite Negative Ur Leukocyte Esterase Negative Microalb/Creat Ratio 145.3 H Coding Level of Care Code Est Pt Level 4 (75790) Diagnoses Type 2 diabetes mellitus with microalbuminuria, without long-term current use of insulin E11.29; R80.9 Essential hypertension I10 Mixed hyperlipidemia E78.2 Hyponatremia E87.1 Vitamin D deficiency E55.9 Obesity (BMI 30-39.9) E66.9 Additional Codes PHQ-9 - 27499 - PHQ-9 Billing: Yes ([id number]) Assessment & Plan Assessment & Plan (1) Type 2 diabetes mellitus with microalbuminuria, without long-term current use of insulin: Code(s): E11.29 - Type 2 diabetes mellitus with other diabetic kidney complication; R80.9 - Proteinuria, unspecified Category: Medical Plan: His HgbA1c remains unchanged at 7.2% on his labs done last week (his in-office HgbA1c was also at 7.2% when checked early last month and was at 7.8% back in August 2024) - goal is at least <7.0% Reinforced diabetic diet Continue Metformin ER 1000 mg BID and Jardiance 10 mg QD Follow up with endocrinology as scheduled - has an appointment scheduled for early next month on 01/04/2025 Patient is also advised that his urine microalbumin level on his recent labs have improved significantly from previous, likely due to better overall control of his diabetes (2) Essential hypertension: Code(s): I10 - Essential (primary) hypertension Category: Medical Plan: Reinforced low sodium diet - goal is systolic BP of 120 to 130 mm or less, considering his albuminuria Continue Lisinopril 5 mg QD - Rx refilled (3) Mixed hyperlipidemia: Code(s): E78.2 - Mixed hyperlipidemia Category: Medical Plan: Results of his labs done last week reviewed and discussed with patient - have advised patient that his cholesterol levels are not at goal and per current guidelines, patient who have diabetes are recommended to be on statins to help lower overall risks Patient now recalls that he was taking a statin use ago but stopped taking it during the COVID pandemic; states that he has no problems going back on cholesterol medications if he has to Reinforced low cholesterol diet Will go ahead and start patient on Atorvastatin 10 mg QD today Will have him recheck his labs and fasting lipids in 4 months for follow up (4) Hyponatremia: Code(s): E87.1 - Hypo-osmolality and hyponatremia Category: Medical Plan: This was noted on his recent labs; corrected sodium for his hyperglycemia was still low at 129.29 a few months ago A serum sodium level has gone up to 133 mmol/L on his recent labs Patient again denies any acute symptoms related to this He admits that he used to drink alcohol often but has since stopped drinking almost entirely over the past few months Will continue to monitor this closely (5) Vitamin D deficiency: Code(s): E55.9 - Vitamin D deficiency, unspecified Category: Medical Plan: Continue Vitamin D3 2000 units QD (6) Obesity (BMI 30-39.9): Code(s): E66.9 - Obesity, unspecified Category: Medical Plan: Reinforced diet/ exercise as tolerated/lose weight Plan Follow-up in 4 months Orders: Orders Complete Blood Count Auto Diff 4 Months D64.9 - Anemia, unspecified Lipid Panel 4 Months E78.00 - Pure hypercholesterolemia, unspecified Microalbumin, Random (w Creat) 4 Months E11.9 - Type 2 diabetes mellitus [facility] complications Comprehensive [place]. Panel Fast 4 Months E78.00 - Pure hypercholesterolemia, unspecified TSH reflex Free T4 4 Months E78.00 - Pure hypercholesterolemia, unspecified UA CC w/rflx Micro + Cult 4 Months R30.0 - Dysuria Hemoglobin A1c 4 Months E11.9 - Type 2 diabetes mellitus without complications Vitamin D 25-OH Total 4 Months E55.9 - Vitamin D deficiency, unspecified Medications: New atorvastatin 10 mg PO BEDTIME 90 days 90 tabs 1RF Refilled lisinopril 5 mg PO DAILY 90 days 90 tabs 1RF
== END 2024-12-21 11:17 | disposition home or self-care (01) ==
PROVIDERS: PCP Internal Medicine; Visit Provider Internal Medicine
DX: E11.29 Type 2 diabetes mellitus with other diabetic kidney complication (principal); Z68.29 Body mass index [BMI] 29.0-29.9, adult; E66.9 Obesity, unspecified; R80.9 Proteinuria, unspecified; I10 Essential (primary) hypertension; E78.2 Mixed hyperlipidemia; E87.1 Hypo-osmolality and hyponatremia; E55.9 Vitamin D deficiency, unspecified

== ENCOUNTER → 2024-12-21 10:33 | Outpatient (BNVA) | payer OTHER, SELFPAY | PROVIDERS: PCP Internal Medicine; Visit Provider Internal Medicine | DX: E11.29 Type 2 diabetes mellitus with other diabetic kidney complication (principal); R80.9 Proteinuria, unspecified; I10 Essential (primary) hypertension; E78.2 Mixed hyperlipidemia; E87.1 Hypo-osmolality and hyponatremia; E55.9 Vitamin D deficiency, unspecified; E66.9 Obesity, unspecified; Z68.29 Body mass index [BMI] 29.0-29.9, adult; Z79.84 Long term (current) use of oral hypoglycemic drugs; Z79.899 Other long term (current) drug therapy | CPT/HCPCS: 96127 ==

== ENCOUNTER 2025-01-04 09:45 | Outpatient (AMB) | payer OTHER, SELFPAY ==
--- NOTE | 2025-01-04 09:58 | A.OFFVIS_ITS ---
Vital Signs 01/04/25 10:02 Height 5 ft 8 in Weight 197 lb 8.547 oz BMI 30.0 BP 130/82 Blood Pressure Location Rt brachial Position Sitting Pulse 76 Pulse Source Pulse Oximeter Pulse Oximetry (%) 95 Oxygen Delivery Method Room Air Intake Visit Reasons: T2DM Intake Note: Patient present today to follow up on Type 2 Diabetes Mellitus. Last Diabetic Eye exam: Had cataract surgery 1 week ago. Last Podiatry Visit: Does not see a Cost Reduction Engineer Random Glucose: 168 mg/dl HgA1C: 7.2% 12/15/24 Fruit Sorter Required: No Accompanied by: Self / Same As Patient Allergies No Known Allergies Allergy (Verified 01/04/25 10:02) HPI Comments Details: This is a 69-year-old male with a past medical history of type 2 diabetes, hypertension, obesity and hyperlipidemia presenting diabetes management. He was diagnosed with diabetes around the time of the pandemic. Hemoglobin a1c 7.2% 12/15/2024 down from 7.8% 10/05/24 down from 8.7%. He forgot his glucometer today. Predominantly checks fasting blood glucose in the morning. He reports his fasting sugars are in the 140s and 150s. He had 1 or 2 sugars over 180 when he cheated on his diet or had some beer. His lowest glucose reading was 121. Current medication regimen: Metformin ER 1000 mg twice daily, Jardiance 10 mg q.a.m.. Tradjenta 5 mg daily. This was discontinued to switch to Jardiance. Compliance issues: No medication compliance issues. Diet: Decreased alcohol and carbohydrates. Nonsmoker. 3-4 days per week he swims at the [employer], but he was not able to swim the last couple of weeks because he had cataract surgery. Hypoglycemia symptoms: None Hyperglycemia symptoms: None Eye exam: up to date Microvascular complications: neuropathy (reports this is improving), nephropathy (microalbumin) Macrovascular complications: None ROS: Constitutional: No unexplained weight loss, fever, chills, fatigue or night sweats. Eyes: No vision changes, blurry vision, double vision Respiratory: No shortness of breath Cardiovascular: No chest pain Endocrine: No cold or heat intolerance. No polyuria or polydipsia. Physical exam: Constitutional: Alert, in no distress. Head: Normocephalic. Eyes: Pupils are equal, round and reactive to light. Extraocular muscles intact. Respiratory: Clear to auscultation. Cardiovascular: S1 S2 regular. No murmurs. The patient declined a foot examination. [facility] Medical History Obesity (BMI 30-39.9) Vitamin D deficiency Essential hypertension Mixed hyperlipidemia Hearing impairment Overweight (BMI 25.0-29.9) Right knee pain Diabetes mellitus Surgical History Hx of cataract surgery History of colonoscopy History of repair of ACL Social History Housing: Condominium Alcohol intake: current Alcohol intake frequency: 0-2 drinks per day Patient Tobacco Use Status: Former Tobacco user e-Cigarette/Vaping Use: Never Used Second Hand Smoke Exposure: Yes service: Yes ([employer]) Current occupational status: employed 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 Cognitive needs: No Hearing needs: No Vision needs: Yes (glasses) Physical Exam Vital Signs: Last Vital Signs Pulse 76 01/04/25 10:02 BP 130/82 01/04/25 10:02 Pulse Ox 95 01/04/25 10:02 Oxygen Delivery Method Room Air 01/04/25 10:02 BMI result Body Mass Index 30.0 Results Reviewed Results Reviewed: Laboratory Last Values Glucose (Clinic) 168 mg/dL (60-115) H 01/04/25 10:08 Laboratory Tests 12/15/24 12/15/24 10:39 10:40 Plt Count 244 Creatinine 1.00 Estimated GFR > 60 Hemoglobin A1c % 7.2 H AST 22 ALT 17 Triglycerides 257 H Cholesterol 212 H LDL Cholesterol, Calc 111 H HDL Cholesterol 50 Urine Creatinine 39.21 Urine Microalbumin 57.0 Microalb/Creat Ratio 145.3 H Fib 4 value 1.47. He had a liver ultrasound in February of 2024 which showed evidence of possible hepatic steatosis. Assessment & Plan Assessment & Plan (1) Type 2 diabetes mellitus with microalbuminuria, without long-term current use of insulin: Code(s): E11.29 - Type 2 diabetes mellitus with other diabetic kidney complication; R80.9 - Proteinuria, unspecified Category: Medical Plan In summary this is a 69-year-old male with type 2 diabetes with improved but suboptimal glycemic control. Patient declines CGM-unlikely to be covered by insurance anyways since he is not on insulin. He will continue fingerstick glucose monitoring. Declines referral to nutrition educator and senior program manager. Diabetic diet reviewed. Continue metformin 1000 mg twice daily and increase Jardiance to 25 mg daily. Return to lab in 10-14 days to check creatinine. Side effects reviewed including LEOBARDO, genitourinary infections. Reviewed signs and symptoms to monitor for while on this medication. Return to lab 10 days after initiating Jardiance to check creatinine. Discussed pathophysiology of Type II Diabetes Mellitus with the patient in detail.? I explained the longterm risks and complications associated with uncontrolled diabetes including nephropathy, neuropathy, peripheral vascular disease, retinopathy, increased risk of heart disease and stroke.? We will discuss repeating his liver ultrasound with elastography at his next appointment. Discussed lifestyle modification with the patient. Recommended 30 minutes of moderately vigorous exercise 5 days per week to promote weight loss. Follow-up in 3 months for diabetes. Orders: Orders Creatinine Today I10 - Essential (primary) hypertension Medications: New empagliflozin (Jardiance) 25 mg PO QAM 90 tabs 1RF Discontinued empagliflozin (Jardiance) Discontinued Reason: Doctor's Order 10 mg PO QAM 90 tabs 1RF Patient Instructions: You can use up your current prescription of Jardiance by taking 2 tabs daily (20mg) then start the new prescription for 25 mg once daily. Continue Metformin 1000 mg twice daily. If you experience low blood sugar (<70), treat this by eating a chewable fruit candy like skittles or jelly beans (about 8 pieces), 4 ounces (1/2 cup) of fruit juice (not diet), 1 tablespoon of honey or 4 glucose tablets. If your blood sugar is under 50, take double the amount of one of the above. Recheck your blood sugar in 15 minutes. Please return to the lab in 10-14 days to for a blood test to check your kidney function. Coding Level of Care Code Est Pt Level 4 (09427) Complex EM visit Add On G2211 Diagnoses Type 2 diabetes mellitus with microalbuminuria, without long-term current use of insulin E11.29; R80.9
[2025-01-04 10:02] VITALS: BP 130/82; PULSE 76; O2SAT 95
[2025-01-04 10:12] LABS: Glucose, Whole Blood 168 mg/dL (60-115)
== END 2025-01-04 10:46 | disposition home or self-care (01) ==
PROVIDERS: PCP Internal Medicine; Visit Provider Physician Assistant Medical
DX: E11.29 Type 2 diabetes mellitus with other diabetic kidney complication (principal); R80.9 Proteinuria, unspecified

== ENCOUNTER → 2025-01-04 09:45 | Outpatient (BNVA) | payer OTHER, SELFPAY | PROVIDERS: PCP Internal Medicine; Visit Provider Physician Assistant Medical | DX: E11.29 Type 2 diabetes mellitus with other diabetic kidney complication (principal); R80.9 Proteinuria, unspecified; Z79.84 Long term (current) use of oral hypoglycemic drugs; Z79.85 Long-term (current) use of injectable non-insulin antidiabetic drugs | CPT/HCPCS: 82947 ==

== ENCOUNTER 2025-04-05 08:52 | Outpatient (AMB) | payer OTHER, SELFPAY ==
--- NOTE | 2025-04-05 09:06 | MHC.OFFVIS ---
Vital Signs 04/05/25 09:10 Height 5 ft 8 in Weight 188 lb 4.396 oz BMI 28.6 BP 132/70 Blood Pressure Location Rt brachial Position Sitting Pulse 92 Pulse Source Pulse Oximeter Pulse Oximetry (%) 97 Oxygen Delivery Method Room Air Intake Visit Reasons: Type II Diabetes Intake Note: Patient present today to follow up on Type 2 Diabetes Mellitus. Last Diabetic Eye exam: 02/02/2025 [facility] Last Podiatry Visit: Does not see a Equipment Validation Specialist Random Glucose: 161 mg/dl HgA1C: 7.6% 04/05/2025 Long Distance Operator Required: No Accompanied by: Self / Same As Patient Allergies No Known Allergies Allergy (Verified 04/05/25 09:10) Medication List - Last Reconciled 04/05/25 by TISH Crenshaw atorvastatin 10 mg PO BEDTIME 90 days blood sugar diagnostic (FreeStyle Lite Strips) As directed to check glucose up to 3 times daily blood-glucose meter (FreeStyle Lite Meter kit) 3 times a day to test blood glucose empagliflozin (Jardiance) 25 mg PO QAM lancets (FreeStyle Lancets) Use as directed to monitor glucose up to 3 times daily lisinopril 5 mg PO DAILY 90 days metformin ER 1,000 mg (2 x 500 mg) PO BID 90 days semaglutide (Rybelsus) 3 mg PO DAILY 30 days HPI Comments Details: This is a 69-year-old male with a past medical history of type 2 diabetes, hypertension, obesity and hyperlipidemia presenting for diabetes management. He was diagnosed with diabetes around the time of the pandemic. Hemoglobin a1c 7.6% up from 7.2%. He forgot his glucometer today. Current medication regimen: Metformin ER 1000 mg twice daily, Jardiance 25 mg q.a.m. Previous medication: Tradjenta 5 mg daily. This was discontinued to switch to Jardiance. Compliance issues: No medication compliance issues. Diet: Decreased alcohol, but he is eating a lot of carbohydrates. He eats a salt grinder at lunch. He likes to eat fruit cups and oranges. Nonsmoker. 3-4 days per week he swims at the [employer].. Hypoglycemia symptoms: None Hyperglycemia symptoms: None Eye exam: up to date Microvascular complications: neuropathy, nephropathy (microalbumin) Macrovascular complications: None ROS: Constitutional: No unexplained weight loss, fever, chills, fatigue or night sweats. Eyes: No vision changes, blurry vision, double vision Respiratory: No shortness of breath Cardiovascular: No chest pain Endocrine: No cold or heat intolerance. No polyuria or polydipsia. Physical exam: Constitutional: Alert, in no distress. Head: Normocephalic. Eyes: Pupils are equal, round and reactive to light. Extraocular muscles intact. Respiratory: Clear to auscultation. Cardiovascular: S1 S2 regular. No murmurs. The patient declined a foot examination. [facility] Medical History Obesity (BMI 30-39.9) Vitamin D deficiency Essential hypertension Mixed hyperlipidemia Hearing impairment Overweight (BMI 25.0-29.9) Right knee pain Diabetes mellitus Surgical History Hx of cataract surgery History of colonoscopy History of repair of ACL Social History Housing: Condominium Alcohol intake: current Alcohol intake frequency: 0-2 drinks per day Patient Tobacco Use Status: Former Tobacco user e-Cigarette/Vaping Use: Never Used Second Hand Smoke Exposure: Yes service: Yes ([employer]) Current occupational status: employed 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 Cognitive needs: No Hearing needs: No Vision needs: Yes (glasses) Physical Exam Vital Signs: Last Vital Signs Pulse 92 04/05/25 09:10 BP 132/70 04/05/25 09:10 Pulse Ox 97 04/05/25 09:10 Oxygen Delivery Method Room Air 04/05/25 09:10 BMI result Body Mass Index 28.6 Results AMB Hemoglobin A1c AMB Hemoglobin A1c 7.6 % Last Edit by ALEKSANDER Morse on 04/05/25 09:31 Results Reviewed Results Reviewed: Laboratory Last Values Glucose (Clinic) 161 mg/dL (60-115) H 04/05/25 09:15 Hgb A1c (Clinic) 7.6 % (4.0-6.0) H 04/05/25 09:20 Laboratory Tests 12/15/24 12/15/24 04/05/25 10:39 10:40 09:20 Plt Count 244 Creatinine 1.00 Estimated GFR > 60 Hgb A1c (Clinic) 7.6 H Triglycerides 257 H Cholesterol 212 H LDL Cholesterol, Calc 111 H HDL Cholesterol 50 Urine Creatinine 39.21 Urine Microalbumin 57.0 Microalb/Creat Ratio 145.3 H Assessment & Plan Assessment & Plan (1) Type 2 diabetes mellitus with microalbuminuria, without long-term current use of insulin: Code(s): E11.29 - Type 2 diabetes mellitus with other diabetic kidney complication; R80.9 - Proteinuria, unspecified Category: Medical Plan In summary this is a 69-year-old male with type 2 diabetes with suboptimal glycemic control. Patient declines CGM-unlikely to be covered by insurance anyways since he is not on insulin. He will continue fingerstick glucose monitoring. I advised him to bring this to his appointments. Declines referral to educator senior clinical and nut roaster helper. Diabetic diet reviewed. Continue metformin 1000 mg twice daily and Jardiance 25 mg daily. He declines injectables. Denies contraindications to GLP 1. Initially hesitant to add medication but he agreed to start Rybelsus 3 mg daily. He also is going to work on his diet. Side effects reviewed. If it isn't covered by insurance or he is not able to tolerate it he agreed to try glipizide. Discussed pathophysiology of Type II Diabetes Mellitus with the patient in detail.? 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 Discussed lifestyle modification with the patient. Recommended 30 minutes of moderately vigorous exercise 5 days per week to promote weight loss. Written instructions given and reviewed for treatment of hypoglycemia. Follow-up in 3 months for diabetes. Orders: Orders AMB Hemoglobin A1c Today E11.29 - Type 2 diabetes mellitus with other diabetic kidney complication, R80.9 - Proteinuria, unspecified Medications: New semaglutide (Rybelsus) Administer in the morning on an empty stomach with up to 4 ounces of plain water only, =30 minutes before eating food, drinking beverages, or taking other oral medications. 3 mg PO DAILY 30 days 90 tabs 0RF Refilled metformin ER 1,000 mg (2 x 500 mg) PO BID 90 days 360 tabs 3RF empagliflozin (Jardiance) 25 mg PO QAM 90 tabs 1RF Patient Instructions: Continue metformin 1000 mg twice daily Continue Jardiance 25 mg daily Start Rybelsus 3 mg every morning. Administer in the morning on an empty stomach with up to 4 ounces of plain water only, 30 minutes before eating food, drinking beverages, or taking other oral medications. Swallow tablets whole; do not split, crush, or chew. If Rybelsus causes stomach upset and it's not tolerated, call me and stop taking it. I will send Glipizide instead. If you experience low blood sugar, treat this by eating a chewable fruit candy like skittles or jelly beans (about 8 pieces), 4 ounces (1/2 cup) of fruit juice (not diet), 1 tablespoon of honey or 4 glucose tablets. If your blood sugar is under 55, take double the amount of one of the above. Recheck your blood sugar in 15 minutes. Coding Level of Care Code Est Pt Level 4 (66961) Complex EM visit Add On G2211 Diagnoses Type 2 diabetes mellitus with microalbuminuria, without long-term current use of insulin E11.29; R80.9
[2025-04-05 09:10] VITALS: BP 132/70; PULSE 92; O2SAT 97; BMI 28.6
[2025-04-05 09:20] LABS: Glucose, Whole Blood 161 mg/dL (60-115)
== END 2025-04-05 10:02 | disposition home or self-care (01) ==
LOC: HO.ENCR 08:52
PROVIDERS: PCP Internal Medicine; Visit Provider Physician Assistant Medical
DX: E11.29 Type 2 diabetes mellitus with other diabetic kidney complication (principal); R80.9 Proteinuria, unspecified

== ENCOUNTER → 2025-04-05 08:52 | Outpatient (BNVA) | payer OTHER, SELFPAY | PROVIDERS: PCP Internal Medicine; Visit Provider Physician Assistant Medical | DX: E11.29 Type 2 diabetes mellitus with other diabetic kidney complication (principal); R80.9 Proteinuria, unspecified; Z79.84 Long term (current) use of oral hypoglycemic drugs | CPT/HCPCS: 82947; 83036 ==

== ENCOUNTER 2025-05-04 08:46 | Outpatient (REF) | payer OTHER, SELFPAY ==
[2025-05-04 08:59] LABS: MANUAL DIFF FLAG NO
[2025-05-04 09:43] LABS: Hematocrit 44.7 % (42.0-52.0); Hemoglobin 15.4 g/dl (14.0-18.0); Imm Gran Abs Auto 0.05 X10*3/uL (0.00-0.03); Imm Gran Pct Auto 0.5 % (0.0-0.4); Lymphocytes Absolute Auto 1.8 X10*3/uL (1.2-4.9); Mean Corpuscular HGB Conc 34.5 g/dl (31.0-36.0); Mean Corpuscular Hemoglobin 32.2 pg (27.0-33.0); Mean Corpuscular Volume 93.3 fL (80.0-98.0); NRBC Abs Auto 0.000 X10*3/uL (0.0-0.012); NRBC Pct Auto 0.0 /100WBC (0.0-0.2); Platelet Count 226 X10*3/uL (160-400); Red Blood Count 4.79 X10*6/uL (4.60-5.80); White Blood Count 9.1 X10*3/uL (4.8-10.8)
[2025-05-04 09:57] LABS: Appearance Urine Clear; Glucose Urine UA >=1000 mg/dL (Negative); PH 5.5 (5.0-9.0); Specific Gravity - Urine 1.015 (1.005-1.025); UMIC TRIGGER UACC YES
[2025-05-04 10:04] LABS: Hemoglobin A1C 203.5226 umol/L; Total Hemoglobin (HGBA1C) 3963.1708 umol/L
[2025-05-04 10:14] LABS: Alanine Aminotransferase 27 U/L (0-40); Albumin Level 4.4 g/dL (3.5-5.0); Alkaline Phosphatase 63 U/L (39-117); Anion Gap 15 (12-20); Aspartate Amino Transferase 25 U/L (5-37); Blood Urea Nitrogen 12 mg/dL (9-16); Calcium 10.2 mg/dL (8.4-10.2); Carbon Dioxide 23 mmol/L (22-29); Chloride 101 mmol/L (96-108); Cholesterol 156 mg/dL (<200); Estimated Glomerular Filt Rate > 60; HDL Cholesterol 52 mg/dL (>40); Potassium 4.5 mmol/L (3.3-5.1); Sodium 134 mmol/L (135-145); Total Protein 7.6 g/dL (6.5-8.0); Triglycerides 122 mg/dL (<150)
[2025-05-04 10:49] LABS: Microalbum/Creatinine Ratio Ur 135.6 ug/mg cr (<30)
== END 2025-05-04 08:47 | disposition home or self-care (01) ==
LOC: HO.LAB 08:46
PROVIDERS: PCP Internal Medicine; Visit Provider Internal Medicine
DX: E11.9 Type 2 diabetes mellitus without complications (principal); D64.9 Anemia, unspecified; E55.9 Vitamin D deficiency, unspecified; E78.00 Pure hypercholesterolemia, unspecified
CPT/HCPCS: 36415; 80053; 80061; 81001; 82043; 82306; 82570; 83036; 84443; 85025

== ENCOUNTER 2025-05-10 10:28 | Outpatient (AMB) | payer OTHER, SELFPAY ==
--- NOTE | 2025-05-10 10:37 | MHC.PC.OV ---
Vital Signs 05/10/25 10:38 Height 5 ft 8 in Weight 189 lb 6 oz BMI 28.8 BP 130/70 Blood Pressure Location Lt brachial Position Sitting Pulse 104 H Pulse Source Pulse Oximeter Pulse Oximetry (%) 97 Oxygen Delivery Method Room Air Intake Visit Reasons: DM, HTN, hyperlipidemia - see comments District Associate Judge Required: No Accompanied by: Self / Same As Patient Allergies No Known Allergies Allergy (Verified 05/10/25 11:21) Medication List - Last Reconciled 05/10/25 by Marino Hernandez MD atorvastatin 10 mg PO BEDTIME 90 days blood sugar diagnostic (FreeStyle Lite Strips) As directed to check glucose up to 3 times daily blood-glucose meter (FreeStyle Lite Meter kit) 3 times a day to test blood glucose empagliflozin (Jardiance) 25 mg PO QAM glipizide ER 5 mg PO DAILY lancets (FreeStyle Lancets) Use as directed to monitor glucose up to 3 times daily lisinopril 5 mg PO DAILY 90 days metformin ER 1,000 mg (2 x 500 mg) PO BID 90 days Tobacco use date assessed: 05/10/25 Fall risk assessment: 2 + Falls in past year Last assessed Fall Risk: 05/10/25 Dental Screening Dental Screen Date: 05/10/25 Did you have a dental visit in the last 12 months?: No Did you have a dental problem in the last 6 months where you did not have access to dental care?: No Was dental information given to patient?: No HPI DM, HTN, hyperlipidemia - see comments HPI Details Patient comes in today for his follow-up visit States that he feels okay He denies any headaches or dizziness Denies any chest pains, no shortness of breath No nausea/vomiting, no abdominal pain No change in bowel habits noted He had his follow-up labs done last week - to discuss his results [facility] Medical History (Updated 05/10/25 @ 11:38 by Marino Hernandez MD) Vitamin D deficiency Essential hypertension Mixed hyperlipidemia Hearing impairment Overweight (BMI 25.0-29.9) Right knee pain Diabetes mellitus Surgical History Hx of cataract surgery History of colonoscopy History of repair of ACL Social History Housing: Condominium Alcohol intake: current Alcohol intake frequency: 0-2 drinks per day Patient Tobacco Use Status: Former Tobacco user e-Cigarette/Vaping Use: Never Used Second Hand Smoke Exposure: Yes service: Yes ([employer]) Current occupational status: employed 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 1. Little interest or pleasure in doing things: not at all 2. Feeling down, depressed, or hopeless: not at all 3. Trouble falling or staying asleep, or sleeping too much: not at all 4. Feeling tired or having little energy: several days 5. Poor appetite or overeating: not at all 6. Feeling bad about yourself - or that you are a failure or have let yourself or your family down: not at all 7. Trouble concentrating on things, such as reading the newspaper or watching television: not at all 8. Moving or speaking so slowly that other people could have noticed. Or the opposite - being so fidgety or restless that you have been moving around a lot more than usual: several days 9. Thoughts that you would be better off or of hurting yourself in some way: not at all Total score: 2 Depression Screening Interpretation: Negative Depression Screening Done: Yes 65814 - PHQ-9 Billing: Yes Source: Developed by Drs. Charly Gutierrez, Ada Gustafson, Marino Sadler and colleagues, with an educational socorro from [employer]. Thrive Questionnaire Date Thrive assessed: 05/10/25 I am a: Patient What is your living situation today?: I have a steady place to live Within the past 12 months, did the food you bought not last and you didn't have the money to get more?: Never true Within the past 12 months, did you worry whether your food would run out before you got money to buy more?: Never true Do you have trouble paying for medicines?: No Do you have trouble getting transportation to medical appointments?: No Do you have trouble paying your heating and electricity bill?: No Do you have trouble taking care of your child, family member or friend?: No Do you have trouble with day-to-day activities such as bathing, preparing meals, shopping, managing finances, etc.?: No Are you currently unemployed and looking for a job?: No Are you interested in more education?: No Please select the resources that you would like help with: None Currently or been in a relationship where the following occur: No concerns reported THRIVE Score: 0 AUDIT C Alcohol Use Questionnaire (AUDIT-C) 1. How often do you have a drink containing alcohol?: 2-3 times a week 2. How many drinks containing alcohol do you have on a typical day when you are drinking?: 3 or 4 3. How often do you have six or more drinks on one occasion?: Less than monthly Total Score: 5 Score Reviewed/Action Taken: Yes JORI-7 AMB Questionnaire JORI-7 Date JORI - 7 assessed: 05/10/25 Feeling nervous, anxious, or on edge: 0 = Not at all Not being able to stop or control worryin = Not at all Worrying too much about different things: 0 = Not at all Trouble relaxin = Not at all Being so restless that it is hard to sit still: 0 = Not at all Becoming easily annoyed or irritable: 0 = Not at all Feeling afraid as if something awful might happen: 0 = Not at all Total JORI-7 score (0-4 normal; 5-9 mild; 10-14 moderate; 15-21 severe): 0 Source: Developed by Drs. Charly Gutierrez, Ada Gustafson, Marino Sadler and colleagues, with an educational socorro from [employer]. Review of Systems Const Denies chills, Denies fatigue, Denies fever(s) and Denies headache(s) ENT Denies dysphagia, Denies dizziness, Denies otalgia, Denies headache(s), Denies neck pain, Denies odynophagia and Denies sore throat Card Denies chest pain, Denies palpitations and Denies dyspnea Resp Denies chest congestion, Denies cough and Denies dyspnea GI Denies abdominal pain, Denies constipation, Denies dysphagia, Denies heartburn, Denies diarrhea, Denies nausea, Denies odynophagia and Denies vomiting Denies dysuria, Denies nocturia and Denies urinary frequency Musc Denies back pain, Reports arthralgias (increased over his right knee lately) and Denies neck pain Skin/Breast Denies rash Neuro Denies dizziness and Denies headache(s) Endo Denies fatigue and Denies palpitations Physical exam (Primary Care) Vital Signs: Last Vital Signs Pulse 104 H 05/10/25 10:38 BP 130/70 05/10/25 10:38 Pulse Ox 97 05/10/25 10:38 Oxygen Delivery Method Room Air 05/10/25 10:38 BMI result Body Mass Index 28.8 Tobacco/Smoking Status: Tobacco use Status Tobacco use date assessed 05/10/25 05/10/25 10:56 Patient Tobacco Use Status Former Tobacco user 05/10/25 10:56 e-Cigarette/Vaping Use Never Used 05/10/25 10:56 PHQ-9: PHQ-9 Score PHQ-9: Total score 2 05/10/25 11:26 Depression Screening Interpretation: Negative Thrive Assessment: Date of Thrive Assessment Date Thrive assessed 05/10/25 05/10/25 10:56 Currently or been in a relationship where the following occur: No concerns reported Const General: no acute distress and alert HENMT Ears: TM's normal bilaterally and EAC's normal Throat: Yes posterior oropharynx normal and Yes tonsils normal (no TP congestion) Neck Neck: Yes supple and No lymphadenopathy Thyroid: Thyroid normal Resp Auscultation: clear to auscultation bilaterally, no rales and no wheezes Cardio Rate: regular rate Rhythm: regular rhythm Heart sounds: no murmurs GI Palpation (GI): Soft to palpation and nontender Auscultation: normal bowel sounds General: Yes no CVA tenderness Back/Spine/Pelvis Back: no CVA tenderness Thoracic/Lumbar Spine: No lumbar spinal tenderness Skin Rashes: no rashes Extrem General: Yes no clubbing, cyanosis or edema Right lower extremity: knee Details: tenderness; no swelling Results Reviewed Results Reviewed: Laboratory Tests 05/04/25 05/04/25 08:50 08:58 WBC 9.1 Hgb 15.4 Hct 44.7 Plt Count 226 Sodium 134 L Potassium 4.5 Creatinine 0.93 Estimated GFR > 60 Fasting Glucose 110 H Hemoglobin A1c % 6.8 H Calcium 10.2 D AST 25 ALT 27 Triglycerides 122 Cholesterol 156 LDL Cholesterol, Calc 80 HDL Cholesterol 52 25-OH Vitamin D Total 36.7 TSH 1.41 Ur Specific [place] 1.015 Urine Protein Negative Urine Glucose (UA) >=1000 H Urine Blood Negative Urine Nitrite Negative Ur Leukocyte Esterase Negative Microalb/Creat Ratio 135.6 H Coding Level of Care Code Est Pt Level 4 (42158) Complex EM visit Add On G2211 Diagnoses Type 2 diabetes mellitus with microalbuminuria, without long-term current use of insulin E11.29; R80.9 Mixed hyperlipidemia E78.2 Essential hypertension I10 Hyponatremia E87.1 Vitamin D deficiency E55.9 Primary osteoarthritis of right knee M17.11 Osteoarthritis type: primary Overweight (BMI 25.0-29.9) E66.3 Additional Codes PHQ-9 - 81821 - PHQ-9 Billing: Yes ([id number]) Assessment & Plan Assessment & Plan (1) Type 2 diabetes mellitus with microalbuminuria, without long-term current use of insulin: Code(s): E11.29 - Type 2 diabetes mellitus with other diabetic kidney complication; R80.9 - Proteinuria, unspecified Category: Medical Plan: His HgbA1c has improved to 6.8% on his labs done last week (was at 7.2% when checked last month) - goal is at least <7.0% Reinforced diabetic diet Continue Metformin ER 1000 mg BID, Jardiance 25 mg QD and Glipizide ER 5 mg QD Follow up with endocrinology as scheduled (2) Mixed hyperlipidemia: Code(s): E78.2 - Mixed hyperlipidemia Category: Medical Plan: Results of his labs done last week reviewed and discussed with patient - his cholesterol levels are now at or near goal Reinforced low cholesterol diet Continue Atorvastatin 10 mg QD Will have him recheck his labs and fasting lipids in 4 months for follow up (3) Essential hypertension: Code(s): I10 - Essential (primary) hypertension Category: Medical Plan: Reinforced low sodium diet - goal is systolic BP of 120 to 130 mm or less, considering his albuminuria Continue Lisinopril 5 mg QD (4) Hyponatremia: Code(s): E87.1 - Hypo-osmolality and hyponatremia Category: Medical Plan: This was still noted on his recent labs although his serum sodium is now at 134 - was previously as low as 129.29 a few months ago Patient again denies any acute symptoms related to this He admits that he used to drink alcohol often but has since stopped drinking almost entirely over the past several months Will continue to monitor this closely (5) Vitamin D deficiency: Code(s): E55.9 - Vitamin D deficiency, unspecified Category: Medical Plan: Continue Vitamin D3 2000 units QD (6) Osteoarthritis of right knee: Code(s): M17.11 - Unilateral primary osteoarthritis, right knee Category: Medical Qualifiers: Osteoarthritis type: primary Qualified Code(s): M17.11 - Unilateral primary osteoarthritis, right knee Plan: He is scheduled to see orthopedics here at [facility] tomorrow for further evaluation and management of his knee issues (7) Overweight (BMI 25.0-29.9): Code(s): E66.3 - Overweight Category: Medical Plan: Reinforced diet/ exercise as tolerated/lose weight Plan Follow-up in 4 months Orders: Orders Vitamin D 25-OH Total 4 Months E55.9 - Vitamin D deficiency, unspecified Complete Blood Count Auto Diff 4 Months D64.9 - Anemia, unspecified Comprehensive Plessis. Panel Fast 4 Months E78.00 - Pure hypercholesterolemia, unspecified Lipid Panel 4 Months E78.00 - Pure hypercholesterolemia, unspecified Microalbumin, Random (w Creat) 4 Months E11.9 - Type 2 diabetes mellitus without complications Hemoglobin A1c 4 Months E11.9 - Type 2 diabetes mellitus without complications UA CC w/rflx Micro + Cult 4 Months R30.0 - Dysuria
[2025-05-10 10:38] VITALS: BP 130/70; PULSE 104; O2SAT 97; BMI 28.8
== END 2025-05-10 11:32 | disposition home or self-care (01) ==
LOC: HO.HMCH 10:32
PROVIDERS: PCP Internal Medicine; Visit Provider Internal Medicine
DX: E11.29 Type 2 diabetes mellitus with other diabetic kidney complication (principal); R80.9 Proteinuria, unspecified; E78.2 Mixed hyperlipidemia; I10 Essential (primary) hypertension; E87.1 Hypo-osmolality and hyponatremia; E55.9 Vitamin D deficiency, unspecified; M17.11 Unilateral primary osteoarthritis, right knee; E66.3 Overweight

== ENCOUNTER → 2025-05-10 10:28 | Outpatient (BNVA) | payer OTHER, SELFPAY | PROVIDERS: PCP Internal Medicine; Visit Provider Internal Medicine | DX: E11.29 Type 2 diabetes mellitus with other diabetic kidney complication (principal); R80.9 Proteinuria, unspecified; E78.2 Mixed hyperlipidemia; I10 Essential (primary) hypertension; E87.1 Hypo-osmolality and hyponatremia; E55.9 Vitamin D deficiency, unspecified; M17.11 Unilateral primary osteoarthritis, right knee; E66.3 Overweight; Z68.28 Body mass index [BMI] 28.0-28.9, adult; Z79.84 Long term (current) use of oral hypoglycemic drugs; Z79.899 Other long term (current) drug therapy; Z13.31 Encounter for screening for depression; Z13.30 Encounter for screening examination for mental health and behavioral disorders, unspecified | CPT/HCPCS: 96127 ==

== ENCOUNTER 2025-05-11 08:58 | Outpatient (AMB) | payer OTHER, SELFPAY ==
--- NOTE | 2025-05-11 09:01 | MHC.OFFVIS ---
Vital Signs 05/11/25 09:12 Height 5 ft 8 in Weight 189 lb BMI 28.7 Intake Visit Reasons: OV - right knee OA Intake Note: Harsha is a 69 year old male who presents today with a cane for a follow up of his right knee OA. Patient reports his knee is causing him a lot of pain and finds it difficult to walk and stand. Patient is wearing his Genumed knee brace which is giving him mild relief. He states that he likes to swim, however he finds it difficult to get in and out of the pool. Possible injection? (His updated A1c is 6.8) Allergies No Known Allergies Allergy (Verified 05/11/25 09:12) HPI HPI OV - right knee OA: Details: Mr. Varma is a 69-year-old male who presents to the office today for ongoing right knee pain. I saw the patient last on 07/13/2024 for right knee osteoarthritis. At that time we provided the patient with a gentleman knee brace which offers him some relief and he was referred to physical therapy. We also discussed the role of cortisone injection however the patient was working on bringing his A1c down at that time and wanted to defer. His A1c at that time was 8.7. His last A1c was -to-2024 and was 6.8. He is looking to possibly proceed with cortisone injection today. [facility] Medical History (Updated 05/10/25 @ 11:38 by Marino Hernandez MD) Vitamin D deficiency Essential hypertension Mixed hyperlipidemia Hearing impairment Overweight (BMI 25.0-29.9) Right knee pain Diabetes mellitus Surgical History Hx of cataract surgery History of colonoscopy History of repair of ACL Social History Housing: Condominium Alcohol intake: current Alcohol intake frequency: 0-2 drinks per day Patient Tobacco Use Status: Former Tobacco user e-Cigarette/Vaping Use: Never Used Second Hand Smoke Exposure: Yes service: Yes ([employer]) Current occupational status: employed 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 No ecchymosis, erythema, or joint effusion. No tenderness to palpation along the medial or lateral joint lines. Full knee extension and flexion. Crepitus felt with ROM. NVI. Office Procedures AMB Joint Injection/Aspiration Joint Injection/Aspiration Primary Site: right knee Prep: site was prepped using aseptic technique, ethochloride spray was applied and injection warnings given Injected: 40 mg of (2% plain lido ), DepoMedrol, with 8 mL of (2% plain lido ) and in the joint Approach Used: anterolateral Procedure: The patient tolerated the procedure well, but had some pain with the injection and there was some relief with the local anesthesia Coding 88094 - Large joint Procedure code (CPT) selection complete Assessment & Plan Assessment & Plan (1) Osteoarthritis of right knee: Code(s): M17.11 - Unilateral primary osteoarthritis, right knee Category: Medical Qualifiers: Osteoarthritis type: primary Qualified Code(s): M17.11 - Unilateral primary osteoarthritis, right knee (2) Diabetes mellitus: Code(s): E11.9 - Type 2 diabetes mellitus without complications Category: Medical Qualifiers: Diabetes mellitus type: type 2 Diabetes mellitus superintendent container terminal insulin use: without superintendent container terminal use Diabetes mellitus complication status: with kidney complications Diabetes mellitus complication detail: with diabetic microalbuminuria Qualified Code(s): E11.29 - Type 2 diabetes mellitus with other diabetic kidney complication; R80.9 - Proteinuria, unspecified Plan The patient was offered a cortisone injection in the right knee with 40 mg of DepoMedrol. The patient was explained the risks, benefits, and alternatives to receiving this injection. After receiving consent for the injection, the patient had the procedure done while in the office today. The patient tolerated the procedure well with no complications. Due to the patient?s history of diabetes, they were instructed to monitor their blood glucose level. The patient was informed that they could see a rise in their numbers and if the numbers became too high, they were instructed to call their PCP. The patient was also informed that they could have facial flushing as a side effect of the injection, but this will pass. Additionally, while in the office today we did discuss the role of possibly moving forward with a right total knee arthroplasty. The patient would like to try the injection 1st to see if this is helpful. He is looking to retire in November of 2025 and switch his insurance to Medicare. It would likely be at that time that he would proceed with surgery. I provided the patient with the Patient's Guide to Total Joint booklet. He will contact the office when he is ready to move forward with surgical intervention an appointment will be made with Dr. Ruiz at that time. Follow-up will be PRN, or sooner if needed Coding Level of Care Code Est Pt Level 4 (98328) Diagnoses Primary osteoarthritis of right knee M17.11 Osteoarthritis type: primary Type 2 diabetes mellitus with diabetic microalbuminuria, without long-term current use of insulin E11.29; R80.9 Diabetes mellitus type: type 2 Diabetes mellitus superintendent container terminal insulin use: without superintendent container terminal use Diabetes mellitus complication status: with kidney complications Diabetes mellitus complication detail: with diabetic microalbuminuria CPT Codes Coding - 62575 Large joint: 12402 - Large joint ([id number])
[2025-05-11 09:12] VITALS: BMI 28.7
== END 2025-05-11 09:31 | disposition home or self-care (01) ==
LOC: HO.HOS 08:59
PROVIDERS: PCP Internal Medicine; Visit Provider Physician Assistant
DX: M17.11 Unilateral primary osteoarthritis, right knee (principal); E11.29 Type 2 diabetes mellitus with other diabetic kidney complication; R80.9 Proteinuria, unspecified
CPT/HCPCS: 20610; 99214

== ENCOUNTER → 2025-05-11 08:58 | Outpatient (BNVA) | payer OTHER, SELFPAY | PROVIDERS: PCP Internal Medicine; Visit Provider Physician Assistant | DX: M25.561 Pain in right knee (principal); M17.11 Unilateral primary osteoarthritis, right knee | CPT/HCPCS: 20610; J1010; J2003 ==

== ENCOUNTER 2025-07-05 08:53 | Outpatient (AMB) | payer OTHER, SELFPAY ==
--- NOTE | 2025-07-05 09:01 | A.OFFVIS_ITS ---
Vital Signs 07/05/25 09:03 07/05/25 09:34 Height 5 ft 8 in Weight 200 lb 2.876 oz BMI 30.4 BP 148/86 H 142/83 H Blood Pressure Location Rt brachial Position Sitting Pulse 87 Pulse Source Pulse Oximeter Pulse Oximetry (%) 97 Intake Visit Reasons: diabetes mellitus Intake Note: Patient present today to follow up on Type 2 Diabetes Mellitus. Last Diabetic Eye exam: 02/02/2025 [facility] Last Podiatry Visit: Does not see a Electronic Masking System Operator Random Glucose: 116 mg/dl HgA1C: 6.8% 05/04/2025 Supervisor Extrusion Required: No Accompanied by: Self / Same As Patient Allergies No Known Allergies Allergy (Verified 07/05/25 09:03) Medication List - Last Reconciled 07/05/25 by TISH Crenshaw atorvastatin 10 mg PO BEDTIME 90 days blood sugar diagnostic (FreeStyle Lite Strips) As directed to check glucose up to 3 times daily blood-glucose meter (FreeStyle Lite Meter kit) 3 times a day to test blood glucose empagliflozin (Jardiance) 25 mg PO QAM glipizide ER 5 mg PO DAILY lancets (FreeStyle Lancets) Use as directed to monitor glucose up to 3 times daily lisinopril 5 mg PO DAILY 90 days metformin ER 1,000 mg (2 x 500 mg) PO BID 90 days HPI Comments Details: This is a 69-year-old male with a past medical history of type 2 diabetes, hypertension, obesity and hyperlipidemia presenting for diabetes management. He was diagnosed with diabetes around the time of the pandemic. Hemoglobin a1c 6.8% 05/04/2025 down from 7.6%. Current medication regimen: Metformin ER 1000 mg twice daily, Jardiance 25 mg q.a.m and glipizide extended release 5 mg daily. Previous medication: Tradjenta 5 mg daily. This was discontinued to switch to Jardiance. GLP 1 was too expensive. Compliance issues: No medication compliance issues. Decreased alcohol. Nonsmoker. 3-4 days per week he swims at the [facility]. Hypoglycemia symptoms: None Hyperglycemia symptoms: None Eye exam: up to date Microvascular complications: neuropathy, nephropathy (microalbumin) Macrovascular complications: None ROS: Constitutional: No unexplained weight loss, fever, chills, fatigue or night sweats. Eyes: No vision changes, blurry vision, double vision Respiratory: No shortness of breath Cardiovascular: No chest pain Endocrine: No cold or heat intolerance. No polyuria or polydipsia. Physical exam: Constitutional: Alert, in no distress. Head: Normocephalic. Eyes: Pupils are equal, round and reactive to light. Extraocular muscles intact. Respiratory: Clear to auscultation. Cardiovascular: S1 S2 regular. No murmurs. Right foot: Warm and well perfused. No clubbing, cyanosis or edema. Intact DP pulse. Decreased vibratory sensation. Intact sensation to monofilament. No open wounds. Left foot: Warm and well perfused. No clubbing, cyanosis or edema. Intact DP pulse. Decreased vibratory sensation. Intact sensation to monofilament. No open wounds. [facility] Medical History (Updated 05/10/25 @ 11:38 by Marino Hernandez MD) Vitamin D deficiency Essential hypertension Mixed hyperlipidemia Hearing impairment Overweight (BMI 25.0-29.9) Right knee pain Diabetes mellitus Surgical History Hx of cataract surgery History of colonoscopy History of repair of ACL Social History Housing: Condominium Alcohol intake: current Alcohol intake frequency: 0-2 drinks per day Patient Tobacco Use Status: Former Tobacco user e-Cigarette/Vaping Use: Never Used Second Hand Smoke Exposure: Yes service: Yes ([employer]) Current occupational status: employed 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 Current occupational exposures/hazards: No Cognitive needs: No Hearing needs: No Vision needs: Yes (glasses) Physical Exam Vital Signs: Last Vital Signs Pulse 87 07/05/25 09:03 BP 148/86 H 07/05/25 09:03 Pulse Ox 97 07/05/25 09:03 BMI result Body Mass Index 30.4 Results Reviewed Results Reviewed: Laboratory Last Values Glucose (Clinic) 116 mg/dL (60-115) H 07/05/25 09:08 Laboratory Tests 05/04/25 05/04/25 08:50 08:58 Plt Count 226 Creatinine 0.93 Estimated GFR > 60 Hemoglobin A1c % 6.8 H AST 25 ALT 27 Triglycerides 122 Cholesterol 156 LDL Cholesterol, Calc 80 HDL Cholesterol 52 25-OH Vitamin D Total 36.7 TSH 1.41 Urine Creatinine 33.92 Urine Microalbumin 46.0 Microalb/Creat Ratio 135.6 H Fibrosis-4 index is 1.45 advanced fibrosis excluded Assessment & Plan Assessment & Plan (1) Type 2 diabetes mellitus with microalbuminuria, without long-term current use of insulin: Code(s): E11.29 - Type 2 diabetes mellitus with other diabetic kidney complication; R80.9 - Proteinuria, unspecified Category: Medical (2) Essential hypertension: Code(s): I10 - Essential (primary) hypertension Category: Medical Plan In summary this is a 69-year-old male with controlled type 2 diabetes. Patient declines CGM-unlikely to be covered by insurance anyways since he is not on insulin. He will continue fingerstick glucose monitoring. I advised him to bring this to his appointments. Declines referral to early childhood special educator and business performance advisor. Diabetic diet reviewed. Continue metformin 1000 mg twice daily, Jardiance 25 mg daily and glipizide extended release 5 mg daily. Discussed pathophysiology of Type II Diabetes Mellitus with the patient in detail.? I explained the longterm risks and complications associated with uncontrolled diabetes including nephropathy, neuropathy, peripheral vascular disease, retinopathy, increased risk of heart disease and stroke.? Discussed lifestyle modification with the patient. Recommended 30 minutes of moderately vigorous exercise 5 days per week to promote weight loss. Written instructions given and reviewed for treatment of hypoglycemia. The patient's blood pressure is elevated today. He reports that he drank more coffee than usual for him. He usually avoids this prior to appointments. He will continue lisinopril 5 mg daily. He is going to start exercising more and decrease sodium in his diet. Advised the patient that if blood pressure remains elevated at his next appointment lisinopril should be increased. He understands. Follow-up in 3 months for diabetes. Medications: Refilled glipizide ER 5 mg PO DAILY 90 tabs 1RF metformin ER 1,000 mg (2 x 500 mg) PO BID 360 tabs 1RF 90 days blood sugar diagnostic (FreeStyle Lite Strips) As directed to check glucose up to 3 times daily 100 ea 5RF Coding Level of Care Code Est Pt Level 4 (37389) Complex EM visit Add On G2211 Diagnoses Type 2 diabetes mellitus with microalbuminuria, without long-term current use of insulin E11.29; R80.9 Essential hypertension I10
[2025-07-05 09:03] VITALS: BP 148/86; PULSE 87; O2SAT 97; BMI 30.4
[2025-07-05 09:12] LABS: Glucose, Whole Blood 116 mg/dL (60-115)
[2025-07-05 09:34] VITALS: BP 142/83
== END 2025-07-05 09:41 | disposition home or self-care (01) ==
LOC: HO.ENCR 08:54
PROVIDERS: PCP Internal Medicine; Visit Provider Physician Assistant Medical
DX: E11.29 Type 2 diabetes mellitus with other diabetic kidney complication (principal); R80.9 Proteinuria, unspecified; I10 Essential (primary) hypertension

== ENCOUNTER → 2025-07-05 08:53 | Outpatient (BNVA) | payer OTHER, SELFPAY | PROVIDERS: PCP Internal Medicine; Visit Provider Physician Assistant Medical | DX: E11.29 Type 2 diabetes mellitus with other diabetic kidney complication (principal) | CPT/HCPCS: 82947 ==

== ENCOUNTER 2025-09-07 08:47 | Outpatient (REF) | payer OTHER, SELFPAY ==
[2025-09-07 09:02] LABS: MANUAL DIFF FLAG NO
[2025-09-07 09:22] LABS: Hematocrit 43.9 % (42.0-52.0); Hemoglobin 15.0 g/dl (14.0-18.0); Imm Gran Abs Auto 0.06 X10*3/uL (0.00-0.03); Imm Gran Pct Auto 0.7 % (0.0-0.4); Lymphocytes Absolute Auto 1.6 X10*3/uL (1.2-4.9); Mean Corpuscular HGB Conc 34.2 g/dl (31.0-36.0); Mean Corpuscular Hemoglobin 32.3 pg (27.0-33.0); Mean Corpuscular Volume 94.6 fL (80.0-98.0); NRBC Abs Auto 0.000 X10*3/uL (0.0-0.012); NRBC Pct Auto 0.0 /100WBC (0.0-0.2); Platelet Count 231 X10*3/uL (160-400); Red Blood Count 4.64 X10*6/uL (4.60-5.80); White Blood Count 8.6 X10*3/uL (4.8-10.8)
[2025-09-07 10:00] LABS: Appearance Urine Clear; Glucose Urine UA >=1000 mg/dL (Negative); PH 6.0 (5.0-9.0); Specific Gravity - Urine 1.020 (1.005-1.025); UMIC TRIGGER UACC YES
[2025-09-07 10:02] LABS: Alanine Aminotransferase 19 U/L (0-40); Albumin Level 4.2 g/dL (3.5-5.0); Alkaline Phosphatase 72 U/L (39-117); Anion Gap 10 (12-20); Aspartate Amino Transferase 20 U/L (5-37); Blood Urea Nitrogen 12 mg/dL (9-16); Calcium 9.4 mg/dL (8.4-10.2); Carbon Dioxide 26 mmol/L (22-29); Chloride 103 mmol/L (96-108); Cholesterol 162 mg/dL (<200); Estimated Glomerular Filt Rate > 60; HDL Cholesterol 45 mg/dL (>40); Potassium 4.5 mmol/L (3.3-5.1); Sodium 134 mmol/L (135-145); Total Protein 7.5 g/dL (6.5-8.0); Triglycerides 166 mg/dL (<150)
[2025-09-07 10:36] LABS: Microalbum/Creatinine Ratio Ur 333.3 ug/mg cr (<30)
== END 2025-09-07 08:48 | disposition home or self-care (01) ==
LOC: HO.LAB 08:47
PROVIDERS: PCP Internal Medicine; Visit Provider Internal Medicine
DX: E11.9 Type 2 diabetes mellitus without complications (principal); E55.9 Vitamin D deficiency, unspecified; D64.9 Anemia, unspecified; E78.00 Pure hypercholesterolemia, unspecified
CPT/HCPCS: 36415; 80053; 80061; 81001; 81003; 82043; 82306; 82570; 83036; 85025

== ENCOUNTER 2025-09-13 09:30 | Outpatient (AMB) | payer OTHER, SELFPAY ==
[2025-09-13 09:56] VITALS: BP 150/70; PULSE 91; RESP 18; TEMP 36.3; O2SAT 98; BMI 30.9
--- NOTE | 2025-09-13 09:56 | MHC.PC.OV ---
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 Accompanied by: Self / Same As Patient Allergies No Known Allergies Allergy (Verified 09/13/25 12:24) Medication List - Last Reconciled 09/13/25 by Marino Hernandez MD atorvastatin 10 mg PO BEDTIME 90 days blood sugar diagnostic (FreeStyle Lite Strips) As directed to check glucose up to 3 times daily blood-glucose meter (FreeStyle Lite Meter kit) 3 times a day to test blood glucose empagliflozin (Jardiance) 25 mg PO QAM glipizide ER 5 mg PO DAILY lancets (FreeStyle Lancets) Use as directed to monitor glucose up to 3 times daily lisinopril 5 mg PO DAILY 90 days metformin ER 1,000 mg (2 x 500 mg) PO BID 90 days Tobacco use date assessed: 09/13/25 Fall risk assessment: 2 + Falls in past year Last assessed Fall Risk: 09/13/25 Dental Screening Dental Screen Date: 09/13/25 Did you have a dental visit in the last 12 months?: No Did you have a dental problem in the last 6 months where you did not have access to dental care?: No Was dental information given to patient?: No HPI 4 month HPI Details Patient comes in today for his follow-up visit States that he feels well He denies any headaches or dizziness Denies any chest pains, no shortness of breath No nausea/vomiting, no abdominal pain No change in bowel habits noted He had his follow-up labs done last week - to discuss his results [facility] Medical History Vitamin D deficiency Essential hypertension Mixed hyperlipidemia Hearing impairment Overweight (BMI 25.0-29.9) Right knee pain Diabetes mellitus Surgical History Hx of cataract surgery History of colonoscopy History of repair of ACL Social History Housing: Condominium Alcohol intake: current Alcohol intake frequency: 0-2 drinks per day Patient Tobacco Use Status: Former Tobacco user e-Cigarette/Vaping Use: Never Used Second Hand Smoke Exposure: Yes service: Yes ([employer]) Current occupational status: employed 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 Current occupational exposures/hazards: No Cognitive needs: No Hearing needs: No Vision needs: Yes (glasses) Questionnaire Thrive Questionnaire Date Thrive assessed: 05/03/25 I am a: Patient What is your living situation today?: I have a steady place to live Within the past 12 months, did the food you bought not last and you didn't have the money to get more?: Never true Within the past 12 months, did you worry whether your food would run out before you got money to buy more?: Never true Do you have trouble paying for medicines?: No Do you have trouble getting transportation to medical appointments?: No Do you have trouble paying your heating and electricity bill?: No Do you have trouble taking care of your child, family member or friend?: No Do you have trouble with day-to-day activities such as bathing, preparing meals, shopping, managing finances, etc.?: No Are you currently unemployed and looking for a job?: No Are you interested in more education?: No Please select the resources that you would like help with: None THRIVE Score: 0 JORI-7 AMB Questionnaire JORI-7 Date JORI - 7 assessed: 05/10/25 Source: Developed by Drs. Charly Gutierrez, Ada Gustafson, Marino Sadler and colleagues, with an educational socorro from [employer]. Review of Systems Const Denies chills, Denies fatigue, Denies fever(s) and Denies headache(s) ENT Denies dysphagia, Denies dizziness, Denies otalgia, Denies headache(s), Denies neck pain, Denies odynophagia and Denies sore throat Card Denies chest pain, Denies palpitations and Denies dyspnea Resp Denies chest congestion, Denies cough and Denies dyspnea GI Denies abdominal pain, Denies constipation, Denies dysphagia, Denies heartburn, Denies diarrhea, Denies nausea, Denies odynophagia and Denies vomiting Denies dysuria, Denies nocturia and Denies urinary frequency Musc Denies back pain, Reports arthralgias (in the right knee - improved with cortisone injection) and Denies neck pain Skin/Breast Denies rash Neuro Denies dizziness and Denies headache(s) Endo Denies fatigue and Denies palpitations Physical exam (Primary Care) Vital Signs: Last Vital Signs Temp 97.3 F 09/13/25 09:56 Pulse 91 09/13/25 09:56 Resp 18 09/13/25 09:56 BP 140/72 H 09/13/25 10:54 Pulse Ox 98 09/13/25 09:56 Oxygen Delivery Method Room Air 09/13/25 09:56 BMI result Body Mass Index 30.9 Tobacco/Smoking Status: Tobacco use Status Tobacco use date assessed 09/13/25 09/13/25 10:03 Patient Tobacco Use Status Former Tobacco user 09/13/25 10:03 e-Cigarette/Vaping Use Never Used 09/13/25 10:03 Thrive Assessment: Date of Thrive Assessment Date Thrive assessed 05/03/25 09/13/25 10:03 Const General: no acute distress and alert HENMT Ears: TM's normal bilaterally and EAC's normal Throat: Yes posterior oropharynx normal and Yes tonsils normal (no TP congestion) Neck Neck: Yes supple and No lymphadenopathy Thyroid: Thyroid normal Resp Auscultation: clear to auscultation bilaterally, no rales and no wheezes Cardio Rate: regular rate Rhythm: regular rhythm Heart sounds: no murmurs GI Palpation (GI): Soft to palpation and nontender Auscultation: normal bowel sounds General: Yes no CVA tenderness Back/Spine/Pelvis Back: no CVA tenderness Thoracic/Lumbar Spine: No lumbar spinal tenderness Skin Rashes: no rashes Extrem General: Yes no clubbing, cyanosis or edema Right lower extremity: knee Details: tenderness; no swelling Results Reviewed Results Reviewed: Laboratory Tests 05/04/25 09/07/25 09/07/25 08:58 08:57 09:01 WBC 8.6 Hgb 15.0 Hct 43.9 Plt Count 231 Sodium 134 L Potassium 4.5 Creatinine 0.90 Estimated GFR > 60 Fasting Glucose 130 H Hemoglobin A1c % 6.4 H Calcium 9.4 D AST 20 ALT 19 Triglycerides 166 H Cholesterol 162 LDL Cholesterol, Calc 84 HDL Cholesterol 45 25-OH Vitamin D Total 28.9 L TSH 1.41 Ur Specific [place] 1.020 Urine Protein 30 (1+) H Urine Glucose (UA) >=1000 H Urine Blood Negative Urine Nitrite Negative Ur Leukocyte Esterase Negative Microalb/Creat Ratio 333.3 H Coding Level of Care Code Est Pt Level 4 (90508) Diagnoses Mixed hyperlipidemia E78.2 Type 2 diabetes mellitus with microalbuminuria, without long-term current use of insulin E11.29; R80.9 Essential hypertension I10 Hyponatremia E87.1 Vitamin D deficiency E55.9 Primary osteoarthritis of right knee M17.11 Osteoarthritis type: primary Obesity (BMI 30-39.9) E66.9 Assessment & Plan Assessment & Plan (1) Mixed hyperlipidemia: Code(s): E78.2 - Mixed hyperlipidemia Category: Medical Plan: Results of his labs done last week reviewed and discussed with patient Reinforced low cholesterol diet Continue Atorvastatin 10 mg QD Will have him recheck his labs and fasting lipids in 4 months for follow up (2) Type 2 diabetes mellitus with microalbuminuria, without long-term current use of insulin: Code(s): E11.29 - Type 2 diabetes mellitus with other diabetic kidney complication; R80.9 - Proteinuria, unspecified Category: Medical Plan: His HgbA1c has improved further to 6.4% on his labs done last week (was previously at 6.8% a few months ago) - goal is at least <7.0% Reinforced diabetic diet Continue Metformin ER 1000 mg BID, Jardiance 25 mg QD and Glipizide ER 5 mg QD Follow up with endocrinology as scheduled (3) Essential hypertension: Code(s): I10 - Essential (primary) hypertension Category: Medical Plan: Reinforced low sodium diet - goal is systolic BP of 120 to 130 mm or less, considering his albuminuria Continue Lisinopril 5 mg QD (4) Hyponatremia: Code(s): E87.1 - Hypo-osmolality and hyponatremia Category: Medical Plan: This was still noted on his recent labs although his serum sodium remains unchanged at 134 - was previously as low as 128 last year Patient again denies any acute symptoms related to this He admits that he used to drink alcohol often but has since stopped drinking almost entirely over the past several months Will continue to monitor this closely (5) Vitamin D deficiency: Code(s): E55.9 - Vitamin D deficiency, unspecified Category: Medical Plan: Continue Vitamin D3 2000 units QD (6) Osteoarthritis of right knee: Code(s): M17.11 - Unilateral primary osteoarthritis, right knee Category: Medical Qualifiers: Osteoarthritis type: primary Qualified Code(s): M17.11 - Unilateral primary osteoarthritis, right knee Plan: States that his knee pain has improved a lot with cortisone injection from orthopedics a few months ago Follow up with orthopedics as scheduled (7) Obesity (BMI 30-39.9): Code(s): E66.9 - Obesity, unspecified Category: Medical Plan: Reinforced diet/ exercise as tolerated/lose weight Plan Follow-up in 4 months Orders: Orders Comprehensive [place]. Panel Fast 4 Months E78.00 - Pure hypercholesterolemia, unspecified Hemoglobin A1c 4 Months E11.9 - Type 2 diabetes mellitus without complications Complete Blood Count Auto Diff 4 Months D64.9 - Anemia, unspecified Lipid Panel 4 Months E78.00 - Pure hypercholesterolemia, unspecified Microalbumin, Random (w Creat) 4 Months E11.9 - Type 2 diabetes mellitus without complications UA CC w/rflx Micro + Cult 4 Months E11.29 - Type 2 diabetes mellitus with other diabetic kidney complication, R30.0 - Dysuria, R80.9 - Proteinuria, unspecified
[2025-09-13 10:54] VITALS: BP 140/72
== END 2025-09-13 11:01 | disposition home or self-care (01) ==
LOC: HO.HMCH 09:31
PROVIDERS: PCP Internal Medicine; Visit Provider Internal Medicine
DX: E11.29 Type 2 diabetes mellitus with other diabetic kidney complication (principal); E78.2 Mixed hyperlipidemia; R80.9 Proteinuria, unspecified; I10 Essential (primary) hypertension; E66.9 Obesity, unspecified; Z68.30 Body mass index [BMI] 30.0-30.9, adult; E87.1 Hypo-osmolality and hyponatremia; E55.9 Vitamin D deficiency, unspecified; M17.11 Unilateral primary osteoarthritis, right knee

== ENCOUNTER 2025-10-25 08:56 | Outpatient (AMB) | payer OTHER, SELFPAY ==
[2025-10-25 08:58] VITALS: BP 140/76; PULSE 89; O2SAT 98; BMI 31.0
--- NOTE | 2025-10-25 08:58 | MHC.OFFVIS ---
Vital Signs 10/25/25 08:58 Height 5 ft 8 in Weight 204 lb 2.369 oz BMI 31.0 BP 140/76 H Blood Pressure Location Lt brachial Position Sitting Pulse 89 Pulse Source Pulse Oximeter Pulse Oximetry (%) 98 Oxygen Delivery Method Room Air Intake Visit Reasons: Type II diabetes Intake Note: Patient present today to follow up on Type 2 Diabetes Mellitus. 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 He was diagnosed with diabetes around the time of the pandemic. Hemoglobin a1c 6.4%. Only has low blood sugar in the 60s if he doesn't eat. Denies symptoms. He corrects this with juice. Current medication regimen: Metformin ER 1000 mg twice daily, Jardiance 25 mg q.a.m and glipizide extended release 5 mg daily. Previous medication: Tradjenta 5 mg daily. This was discontinued to switch to Jardiance. GLP 1 was too expensive. Compliance issues: No medication compliance issues. Decreased alcohol. Nonsmoker. 3-4 days per week he swims at the [employer]. He is retiring at the end of November 2025. Hypoglycemia symptoms: None Hyperglycemia symptoms: None Eye exam: up to date Microvascular complications: neuropathy, nephropathy (microalbumin) Macrovascular complications: None Patient has hypertension, taking lisinopril 5 mg. Blood pressure has been elevated at all visit since July. Hyperlipidemia is treated with atorvastatin. ROS: Constitutional: No unexplained weight loss, fever, chills, fatigue or night sweats. Eyes: No vision changes, blurry vision, double vision Respiratory: No shortness of breath Cardiovascular: No chest pain Endocrine: No cold or heat intolerance. No polyuria or polydipsia. Physical exam: Constitutional: Alert, in no distress. Head: Normocephalic. Respiratory: Clear to auscultation. Cardiovascular: S1 S2 regular. No murmurs. 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 Current occupational exposures/hazards: No Cognitive needs: No Hearing needs: No Vision needs: Yes (glasses) Physical Exam Vital Signs: Last Vital Signs Pulse 89 10/25/25 08:58 BP 140/76 H 10/25/25 08:58 Pulse Ox 98 10/25/25 08:58 Oxygen Delivery Method Room Air 10/25/25 08:58 BMI result Body Mass Index 31.0 Results Reviewed Results Reviewed: Laboratory Last Values Glucose (Clinic) 97 mg/dL (60-115) 10/25/25 09:05 Laboratory Tests 09/07/25 09/07/25 08:57 09:01 Creatinine 0.90 Estimated GFR > 60 Hemoglobin A1c % 6.4 H Triglycerides 166 H Cholesterol 162 LDL Cholesterol, Calc 84 HDL Cholesterol 45 Urine Creatinine 42.30 Urine Microalbumin 141.0 Microalb/Creat Ratio 333.3 H Assessment & Plan Assessment & Plan (1) Type 2 diabetes mellitus with microalbuminuria, without long-term current use of insulin: Code(s): E11.29 - Type 2 diabetes mellitus with other diabetic kidney complication; R80.9 - Proteinuria, unspecified Category: Medical (2) Essential hypertension: Code(s): I10 - Essential (primary) hypertension Category: Medical (3) Mixed hyperlipidemia: Code(s): E78.2 - Mixed hyperlipidemia Category: Medical Plan In summary this is a 69-year-old male with controlled type 2 diabetes. Continue to use fingerstick glucose monitoring and bring glucometer to appointments. Continue metformin 1000 mg twice daily, Jardiance 25 mg daily and glipizide extended release 5 mg daily. Discussed pathophysiology of Type II Diabetes Mellitus with the patient in detail.? I explained the fpc risks and complications associated with uncontrolled diabetes including nephropathy, neuropathy, peripheral vascular disease, retinopathy, increased risk of heart disease and stroke.? Discussed lifestyle modification with the patient. Recommended 30 minutes of moderately vigorous exercise 5 days per week to promote weight loss. Reviewed treatment of hypoglycemia. Patient will increase lisinopril to 10 mg daily. Side effects reviewed. Return to lab 2 weeks after adjusting medication to check creatinine and electrolytes. Continue atorvastatin for hyperlipidemia. Follow-up in 3 months for diabetes. Orders: Orders Basic Metabolic Panel Today I10 - Essential (primary) hypertension Medications: New lisinopril 10 mg PO DAILY 90 tabs 1RF Refilled empagliflozin (Jardiance) 25 mg PO QAM 90 tabs 1RF Discontinued lisinopril Discontinued Reason: Doctor's Order 5 mg PO DAILY 90 days 90 tabs 1RF Coding Level of Care Code Est Pt Level 4 (33478) Add On Problem Visit Only Diagnoses Type 2 diabetes mellitus with microalbuminuria, without long-term current use of insulin E11.29; R80.9 Essential hypertension I10 Mixed hyperlipidemia E78.2
[2025-10-25 09:10] LABS: Glucose, Whole Blood 97 mg/dL (60-115)
== END 2025-10-25 09:33 | disposition home or self-care (01) ==
LOC: HO.ENCR 08:57
PROVIDERS: PCP Internal Medicine; Visit Provider Physician Assistant Medical
DX: E11.29 Type 2 diabetes mellitus with other diabetic kidney complication (principal); R80.9 Proteinuria, unspecified; I10 Essential (primary) hypertension; E78.2 Mixed hyperlipidemia

== ENCOUNTER → 2025-10-25 08:56 | Outpatient (BNVA) | payer OTHER, SELFPAY | PROVIDERS: PCP Internal Medicine; Visit Provider Physician Assistant Medical | DX: E11.29 Type 2 diabetes mellitus with other diabetic kidney complication (principal); R80.9 Proteinuria, unspecified; I10 Essential (primary) hypertension; E78.5 Hyperlipidemia, unspecified; Z79.84 Long term (current) use of oral hypoglycemic drugs; Z79.899 Other long term (current) drug therapy | CPT/HCPCS: 82947 ==